=== PATIENT | female | born 1935 ===

== ENCOUNTER 2018-09-11 13:00 | Outpatient (RCR) | payer MEDICARE, OTHER, SELFPAY ==
--- NOTE | 2018-07-24 10:30 | PT.OIE ---
Current Diagnoses Other bursitis of hip, left hip (07/24/18) Provider Visit Care Team Role Provider Type Robin Dyson MD Attending Provider Non-Staff Primary Care Provider Specialty: Orthopedic Surgery Address: [address] [place] [address], [id number] Email: Physical Therapy Initial Evaluation PT-OP-A Visit Information Start: 07/24/18 18:54 Freq: Status: Active Protocol: Document 07/24/18 10:30 DLM (Rec: 07/25/18 19:24 DLM [id number]) Out-Patient Physical Therapy Visit Information Visit Information Visit Type Initial Evaluation Visit Start Time 10:30 Visit Stop Time 11:20 Total Visit Minutes 46 Visit Number 1 Number of MANAGER ROOFING Visits 0 Evaluation Information Evaluation Date 07/24/18 PT-OP-B Current Condition Start: 07/24/18 18:54 Freq: Status: Active Protocol: Document 07/24/18 10:30 DLM (Rec: 07/25/18 19:24 DLM [id number]) Current Condition History of Current Condition Onset Date 1 year ago Current Complaints left hip area pain, posterior and lateral History of Current Condition She reports her pain started about a year ago. She reports pain relief with prior physical therapy. She underwent an MRI since leaving therapy and has been diagnosed with a scoliosis. She had an injection yesturday . Her pain is limiting her ability to walk. She also has pain lying on left hip to sleep. Prior Treatments and Tests physical therapy injection x 2 MRI Treatment Goals Patient/Caregiver Goals be able to walk and hike for exercise Prior Functional Status Baseline Function- ADL's Independent Baseline Function- Mobility Independent Baseline Function- Gait Independent without device community distances Baseline Function- Work/School retired Baseline Function- Recreation/Hobbies likes to hike and walk for exercise goes to strength and balance class 2 x/week Current Functional Impairments (Reported) Functional Limitations- ADL's Independent, pain makes it hard to fall asleep, increased pain limits how long she can stand Functional Limitations- Mobility/Gait Independent gait without device but has limited her distances due to pain, unable to hike due to the pain, has tried a hiking stick Functional Limitations- Recreation/ unable to hike, continues to Hobbies participate in exercise class 2 x/week Personal Factors Other Personal Factors That May Effect 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, DM-I, right LE shorter than left, scoliosis PT-OP-C Subjective Start: 07/24/18 18:54 Freq: Status: Active Protocol: Document 07/24/18 10:30 DLM (Rec: 07/25/18 19:24 DLM [id number]) OP-PT Subjective Patient Comments Patient Comments She has not continued all of her exercises from her prior Physical Therapy with Katerine Patient Questionnaires Lower Extremity Functional Scale LEFS Score 60 LEFS Impairment 20 to 39% Impaired (Score 48- 62) OP-PT Pain Assessment Pain Assessment Grid Paper Pain Assessment Grid Completed Yes Location Left Posterior Lateral Hip Intensity 3 Scale Used Numeric (1 - 10) Description Aching Frequency Constant Variations/Patterns no numbness, no tingling in LE 's Pain Aggravating Factors Changing Position Activity Exercise Standing Walking Stair Climbing Pain Alleviating Factors Cold Heat Medication Inactivity Sitting Home Pain Medication Use Pain Medications Used No: no narcotics Pain Behaviors Pain Behaviors Facial Grimacing Wincing PT-OP-G Mobility & Gait Start: 07/24/18 18:54 Freq: Status: Active Protocol: Document 07/24/18 10:30 DLM (Rec: 07/25/18 19:24 DLM [id number]) OP Mobility Evaluation Bed Mobility Rolling increased pain but able to complete without assistance Supine to and from Sit increased pain but independent , unable to lie flat in supine due to pain and she keeps left knee flexed up Transfers Sit to Stand independent Bed to Chair Transfers independent OP Gait Assessment Gait Gait Assistance Required: Independent Assistive Devices Assistive Device None Gait Deviations General Gait Pattern Antalgic Factors Limiting Gait Function Factors Limiting Gait Function Decreased Strength Pain PT-OP-J Posture/Palpation/Skin Start: 07/24/18 18:54 Freq: Status: Active Protocol: Document 07/24/18 10:30 DLM (Rec: 07/25/18 19:24 DLM [id number]) Posture Evaluation Position Standing Evaluation View Posterior Head/C-Spine Posture Side Bent Left Forward Head T-Spine Posture Flexible Scoliosis on (R) L-Spine Posture Flattened Shifted Left Shoulder Posture (L) Elevated Palpation Assessment Location Two Palpation Location left buttock Palpation Findings Soft Tissue Tightness Tenderness Palpation Details left trochanter area also tender, this was also the area of her injection yesturday One Palpation Location lumbar paraspinals Palpation Findings Soft Tissue Tightness Palpation Details left tighter than right PT-OP-K Range of Motion Start: 07/24/18 18:54 Freq: Status: Active Protocol: Document 07/24/18 10:30 DLM (Rec: 07/25/18 19:24 DLM [id number]) Lumbar Spine Range of Motion Lumbar Spine Active Percentage Testing Position standing Flexion 100 Extension 80 Rotation Left 100 Rotation Right 80 Lateral Flexion Left 50 Lateral Flexion Right 100 ROM Limitations Soft Tissue Tightness Bony Restriction Pain Comments flexion- decreased pain left rotation- increased pain lateral flexion left- increased pain Hip Goniometric Range of Motion Hip Measured in Degrees Right Active Hip ROM WFL Yes Left Active Hip ROM WFL Yes Hip ROM Limitations Comments pain with left hip abduction ROM PT-OP-L Special Tests Start: 07/24/18 18:54 Freq: Status: Active Protocol: Document 07/24/18 10:30 DLM (Rec: 07/25/18 19:24 DLM [id number]) Special Tests Lumbar Spine Special Tests Prone Knee Flexion Test Results negative bilaterally Comments left quad tighter than right Hip Special Tests Straight Leg Raise Test Results negative bilateral, less pain with SLR on left PT-OP-M Strength Start: 07/24/18 18:54 Freq: Status: Active Protocol: Document 07/24/18 10:30 DLM (Rec: 07/25/18 19:24 DLM [id number]) Trunk Strength Trunk Manual Muscle Testing Reason Not Measured Pain Comments pain interferes with her trunk strength Hip Strength Hip Manual Muscle Testing Left Flexion (L2) 4 Good Extension (S1) 5 Normal Abduction 3+ Fair+ Adduction 5 Normal External Rotation 4 Good Internal Rotation 4 Good Reason Not Measured Pain Comments pain with resisted left hip flexion Right Flexion (L2) 5 Normal Extension (S1) 4+ Good+ Abduction 5 Normal Adduction 5 Normal External Rotation 5 Normal Internal Rotation 5 Normal Knee Strength Knee Manual Muscle Testing Left Flexion (S2) 5 Normal Extension (L3) 5 Normal Right Flexion (S2) 5 Normal Extension (L3) 5 Normal Ankle/Foot Strength Ankle and Foot Manual Muscle Testing Left Dorsiflexion (L4) 5 Normal Right Dorsiflexion (L4) 5 Normal PT-OP-Q Treatments Start: 07/24/18 18:54 Freq: Status: Active Protocol: Document 07/24/18 10:30 DLM (Rec: 07/25/18 19:24 [facility] [id number]) Self-Care/Home Management Treatment Education Other Education initiated review of her current HEP, pt to make a list of what exercises she currently performs and bring to next visit PT-OP-T Assessment and Plan Start: 07/24/18 18:54 Freq: Status: Active Protocol: Document 07/24/18 10:30 DLM (Rec: 07/25/18 19:24 [facility] [id number]) Physical Therapy Assessment Rehab Potential Rehabilitation Potential Good Evaluation Complexity Number of Personal Factors/Comorbidities 3 or More Number of Body Systems Impaired 4 or More Clinical Presentation at Evaluation Evolving Impairments Impairments Activity Tolerance Functional Activities Functional Mobility Gait Pain Posture ROM Soft Tissue Mobility Strength Other Concerns Age Related Concerns 82 years old Goals Three Impairment pain interferes with her sleep Short Term Goal (STG) she will be able to lie flat in supine STG Duration 4 weeks Retirement Goal (LTG) Her pain will no longer make it hard for her to get to sleep LTG Duration 8 weeks Two Impairment LE weakness Short Term Goal (STG) Increase left hip abduction strength to at least 4/5 STG Duration 4 weeks Retirement Goal (LTG) Increase her LE strength to at least 4+/5 LTG Duration 8 weeks One Impairment pain 3/10 Short Term Goal (STG) She will be able to roll over in bed without increased left hip pain STG Duration 4 weeks Retirement Goal (LTG) She will be able to walk a mile without increased left hip pain, with/without assistive device LTG Duration 8 weeks Assessment Summary Assessment She presents with left hip pain of a complex nature. She has clinical signs of trochanteric bursitis. 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 She responded to physical therapy well in the past. She is very active at baseline and is concerned that her pain is now limiting her activities. She appears motivated to participate in physical therapy to decrease her pain. Physical Therapy Plan Frequency and Duration Frequency of Treatment 2x/Week Duration of Treatment 8 weeks Plan of Care Start Date 07/24/18 Plan of Care End Date 09/30/18 Therapeutic Interventions Therapeutic Interventions Aquatic Therapy Home Exercise Program Manual Therapy Patient/Caregiver Education Self-Care/Home Management Soft Tissue Mobilization Taping Therapeutic Activities Therapeutic Exercises Modalities Cold Pack/Ice Massage Electric Stimulation Hot Packs Ultrasound Next Visit Focus/Plan Next Note Type Treatment Note Next Visit Plan review her current HEP, begin strengthening as tolerated, manual therapy
--- NOTE | 2018-07-24 10:30 | PT.OPPOC ---
Current Diagnoses Other bursitis of hip, left hip (07/24/18) Provider Visit Care Team Role Provider Type Robin Dyson MD Attending Provider Non-Staff Primary Care Provider Specialty: Orthopedic Surgery Address: [address] [place] [address], [id number] Email: Plan Of Care PT-OP-T Assessment and Plan Start: 07/24/18 18:54 Freq: Status: Active Protocol: Document 07/24/18 10:30 DLM (Rec: 07/25/18 19:24 DLM [id number]) Physical Therapy Assessment Rehab Potential Rehabilitation Potential Good Evaluation Complexity Number of Personal Factors/Comorbidities 3 or More Number of Body Systems Impaired 4 or More Clinical Presentation at Evaluation Evolving Impairments Impairments Activity Tolerance Functional Activities Functional Mobility Gait Pain Posture ROM Soft Tissue Mobility Strength Other Concerns Age Related Concerns 82 years old Goals Three Impairment pain interferes with her sleep Short Term Goal (STG) she will be able to lie flat in supine STG Duration 4 weeks Fire Controlman Goal (LTG) Her pain will no longer make it hard for her to get to sleep LTG Duration 8 weeks Two Impairment LE weakness Short Term Goal (STG) Increase left hip abduction strength to at least 4/5 STG Duration 4 weeks Fire Controlman Goal (LTG) Increase her LE strength to at least 4+/5 LTG Duration 8 weeks One Impairment pain 3/10 Short Term Goal (STG) She will be able to roll over in bed without increased left hip pain STG Duration 4 weeks Penitentiary Goal (LTG) She will be able to walk a mile without increased left hip pain, with/without assistive device LTG Duration 8 weeks Assessment Summary Assessment She presents with left hip pain of a complex nature. She has clinical signs of trochanteric bursitis. 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 She responded to physical therapy well in the past. She is very active at baseline and is concerned that her pain is now limiting her activities. She appears motivated to participate in physical therapy to decrease her pain. Physical Therapy Plan Frequency and Duration Frequency of Treatment 2x/Week Duration of Treatment 8 weeks Plan of Care Start Date 07/24/18 Plan of Care End Date 09/30/18 Therapeutic Interventions Therapeutic Interventions Aquatic Therapy Home Exercise Program Manual Therapy Patient/Caregiver Education Self-Care/Home Management Soft Tissue Mobilization Taping Therapeutic Activities Therapeutic Exercises Modalities Cold Pack/Ice Massage Electric Stimulation Hot Packs Ultrasound Next Visit Focus/Plan Next Note Type Treatment Note Next Visit Plan review her current HEP, begin strengthening as tolerated, manual therapy Plan of Care Dates Plan of Care Start Date 07/24/18 Plan of Care End Date 09/30/18 Please Sign and Return: I have reviewed this Plan of Care and certify that the skilled therapy services above are required to meet the patient?s needs. Physician Signature Date Printed Name and Credentials Clinical Instructor Signature Printed Name and Credentials
--- NOTE | 2018-07-31 11:15 | PT.OTN ---
Current Diagnoses Other bursitis of hip, left hip (07/31/18) Physical Therapy Treatment Note PT-OP-A Visit Information Start: 07/24/18 18:54 Freq: Status: Active Protocol: Document 07/31/18 11:15 DLM (Rec: 07/31/18 14:34 DLM [id number]) Out-Patient Physical Therapy Visit Information Visit Information Visit Type Treatment Note Visit Start Time 11:17 Visit Stop Time 11:59 Total Visit Minutes 42 Visit Number 3/ Number of LABORATORY CLERK Visits 0 Evaluation Information Evaluation Date 07/24/18 PT-OP-B Current Condition Start: 07/24/18 18:54 Freq: Status: Active Protocol: Document 07/24/18 10:30 DLM (Rec: 07/25/18 19:24 DLM [id number]) Current Condition History of Current Condition Onset Date 1 year ago Current Complaints left hip area pain, posterior and lateral History of Current Condition She reports her pain started about a year ago. She reports pain relief with prior physical therapy. She underwent an MRI since leaving therapy and has been diagnosed with a scoliosis. She had an injection yesturday . Her pain is limiting her ability to walk. She also has pain lying on left hip to sleep. Prior Treatments and Tests physical therapy injection x 2 MRI Treatment Goals Patient/Caregiver Goals be able to walk and hike for exercise Prior Functional Status Baseline Function- ADL's Independent Baseline Function- Mobility Independent Baseline Function- Gait Independent without device community distances Baseline Function- Work/School retired Baseline Function- Recreation/Hobbies likes to hike and walk for exercise goes to strength and balance class 2 x/week Current Functional Impairments (Reported) Functional Limitations- ADL's Independent, pain makes it hard to fall asleep, increased pain limits how long she can stand Functional Limitations- Mobility/Gait Independent gait without device but has limited her distances due to pain, unable to hike due to the pain, has tried a hiking stick Functional Limitations- Recreation/ unable to hike, continues to Hobbies participate in exercise class 2 x/week Personal Factors Other Personal Factors That May Effect 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 No increased soreness after last visit nor with exercises at home. Patient Reported Progress Improving OP-PT Pain Assessment Location Left Posterior Lateral Hip Intensity 1 Scale Used Numeric (1 - 10) Description Tightness Frequency Intermittent PT-OP-G Mobility & Gait Start: 07/24/18 18:54 Freq: Status: Active Protocol: Document 07/24/18 10:30 DLM (Rec: 07/25/18 19:24 DLM [id number]) OP Mobility Evaluation Bed Mobility Rolling increased pain but able to complete without assistance Supine to and from Sit increased pain but independent , unable to lie flat in supine due to pain and she keeps left knee flexed up Transfers Sit to Stand independent Bed to Chair Transfers independent OP Gait Assessment Gait Gait Assistance Required: Independent Assistive Devices Assistive Device None Gait Deviations General Gait Pattern Antalgic Factors Limiting Gait Function Factors Limiting Gait Function Decreased Strength Pain PT-OP-J Posture/Palpation/Skin Start: 07/24/18 18:54 Freq: Status: Active Protocol: Document 07/24/18 10:30 DLM (Rec: 07/25/18 19:24 DL [id number]) Posture Evaluation Position Standing Evaluation View Posterior Head/C-Spine Posture Side Bent Left Forward Head T-Spine Posture Flexible Scoliosis on (R) L-Spine Posture Flattened Shifted Left Shoulder Posture (L) Elevated Palpation Assessment Location Two Palpation Location left buttock Palpation Findings Soft Tissue Tightness Tenderness Palpation Details left trochanter area also tender, this was also the area of her injection yesturday One Palpation Location lumbar paraspinals Palpation Findings Soft Tissue Tightness Palpation Details left tighter than right PT-OP-K Range of Motion Start: 07/24/18 18:54 Freq: Status: Active Protocol: Document 07/24/18 10:30 DLM (Rec: 07/25/18 19:24 DLM [id number]) Lumbar Spine Range of Motion Lumbar Spine Active Percentage Testing Position standing Flexion 100 Extension 80 Rotation Left 100 Rotation Right 80 Lateral Flexion Left 50 Lateral Flexion Right 100 ROM Limitations Soft Tissue Tightness Bony Restriction Pain Comments flexion- decreased pain left rotation- increased pain lateral flexion left- increased pain Hip Goniometric Range of Motion Hip Measured in Degrees Right Active Hip ROM WFL Yes Left Active Hip ROM WFL Yes Hip ROM Limitations Comments pain with left hip abduction ROM PT-OP-L Special Tests Start: 07/24/18 18:54 Freq: Status: Active Protocol: Document 07/24/18 10:30 DLM (Rec: 07/25/18 19:24 DLM [id number]) Special Tests Lumbar Spine Special Tests Prone Knee Flexion Test Results negative bilaterally Comments left quad tighter than right Hip Special Tests Straight Leg Raise Test Results negative bilateral, less pain with SLR on left PT-OP-M Strength Start: 07/24/18 18:54 Freq: Status: Active Protocol: Document 07/24/18 10:30 DLM (Rec: 07/25/18 19:24 DL [id number]) Trunk Strength Trunk Manual Muscle Testing Reason Not Measured Pain Comments pain interferes with her trunk strength Hip Strength Hip Manual Muscle Testing Left Flexion (L2) 4 Good Extension (S1) 5 Normal Abduction 3+ Fair+ Adduction 5 Normal External Rotation 4 Good Internal Rotation 4 Good Reason Not Measured Pain Comments pain with resisted left hip flexion Right Flexion (L2) 5 Normal Extension (S1) 4+ Good+ Abduction 5 Normal Adduction 5 Normal External Rotation 5 Normal Internal Rotation 5 Normal Knee Strength Knee Manual Muscle Testing Left Flexion (S2) 5 Normal Extension (L3) 5 Normal Right Flexion (S2) 5 Normal Extension (L3) 5 Normal Ankle/Foot Strength Ankle and Foot Manual Muscle Testing Left Dorsiflexion (L4) 5 Normal Right Dorsiflexion (L4) 5 Normal PT-OP-Q Treatments Start: 07/24/18 18:54 Freq: Status: Active Protocol: Document 07/31/18 11:15 DLM (Rec: 07/31/18 14:34 DLM [id number]) Therapeutic Exercises Supine Exercises 5 Supine Exercise Name hip flexor stretch off edge of bed Side bilateral Reps/Minutes 30 sec hold 3 Supine Exercise Name single knee to chest stretch Resistance 3 reps each side Reps/Minutes hold 60 seconds 2 Supine Exercise Name bilateral hip abduction with therabanc Resistance level 1 theraband Reps/Minutes 2 x 10 reps Comments Hooklying 1 Supine Exercise Name bridges Reps/Minutes 2 x 10 reps Comments no pain Sidelying Exercises 1 Sidelying Exercise Name clam shells Reps/Minutes 2 x 10 reps Standing Exercises 1 Standing Exercise Name marching with core stabalization Side bilateral Reps/Minutes x 10 reps Comments mirror and cues to avoid post pelvic rotation when lifting right foot up Other Exercises 2 Other Exercise Name hip hinge rock back stretch Reps/Minutes x 10 reps Comments c/o tightness on left compared to right 1 Other Exercise Name cat cow Reps/Minutes 10 reps Comments Quadruped with towel under left hand Self-Care/Home Management Treatment Education Other Education answered her questions about HEP PT-OP-R Modalities Start: 07/24/18 18:54 Freq: Status: Active Protocol: Document 07/31/18 11:15 DLM (Rec: 07/31/18 14:34 [facility] [id number]) Ultrasound Therapy Treatment Left Hip Treatment Duration (minutes) 8 Patient Position Sidelying Coupling Medium Ultrasound Gel Applicator Size (cm2) 10 Mode Setting Continuous Duty Cycle 100% Intensity Setting (w/cm2) 1.2 Comments posterior/lateral aspects PT-OP-T Assessment and Plan Start: 07/24/18 18:54 Freq: Status: Active Protocol: Document 07/31/18 11:15 DLM (Rec: 07/31/18 14:34 [facility] [id number]) Physical Therapy Assessment Impairments Impairments Activity Tolerance Functional Activities Functional Mobility Gait Pain Posture ROM Soft Tissue Mobility Strength Goals Three Impairment pain interferes with her sleep Short Term Goal (STG) she will be able to lie flat in supine STG Duration 4 weeks Nursing Home Goal (LTG) Her pain will no longer make it hard for her to get to sleep LTG Duration 8 weeks Two Impairment LE weakness Short Term Goal (STG) Increase left hip abduction strength to at least 4/5 STG Duration 4 weeks Ward Secretary Goal (LTG) Increase her LE strength to at least 4+/5 LTG Duration 8 weeks One Impairment pain 3/10 Short Term Goal (STG) She will be able to roll over in bed without increased left hip pain STG Duration 4 weeks Ward Secretary Goal (LTG) She will be able to walk a mile without increased left hip pain, with/without assistive device LTG Duration 8 weeks Progress Towards Goals Progress Towards Goals Progressing Toward Goals Assessment Summary Assessment She continues to have decreased pain in her left hip . She tolerated exercises well this visit with reports of tightness on left. Noted pelvic/hip instability with right standing march motion where she rotates. Recommend continuing to progress strengthening with core stabalization. She continues to have pain with rolling in bed. Physical Therapy Plan Frequency and Duration Frequency of Treatment 2x/Week Duration of Treatment 8 weeks Plan of Care Start Date 07/24/18 Plan of Care End Date 09/30/18 Therapeutic Interventions Therapeutic Interventions Aquatic Therapy Home Exercise Program Manual Therapy Patient/Caregiver Education Self-Care/Home Management Soft Tissue Mobilization Taping Therapeutic Activities Therapeutic Exercises Modalities Cold Pack/Ice Massage Electric Stimulation Hot Packs Ultrasound Next Visit Focus/Plan Next Note Type Treatment Note Next Visit Plan ITB stretching and STM , core stabalization
--- NOTE | 2018-07-31 11:47 | PT.OTN ---
Current Diagnoses Other bursitis of hip, left hip (07/31/18) Physical Therapy Treatment Note PT-OP-A Visit Information Start: 07/24/18 18:54 Freq: Status: Active Protocol: Document 07/26/18 14:30 [facility] (Rec: 07/31/18 11:46 [facility] [email or web address]) Out-Patient Physical Therapy Visit Information Visit Information Visit Type Treatment Note Visit Start Time 14:30 Visit Stop Time 15:15 Total Visit Minutes 45 Visit Number 2 Number of DIRECTOR OF PHYSICIAN PRACTICES Visits 0 Evaluation Information Evaluation Date 07/24/18 PT-OP-B Current Condition Start: 07/24/18 18:54 Freq: Status: Active Protocol: Document 07/24/18 10:30 DLM (Rec: 07/25/18 19:24 DLM [id number]) Current Condition History of Current Condition Onset Date 1 year ago Current Complaints left hip area pain, posterior and lateral History of Current Condition She reports her pain started about a year ago. She reports pain relief with prior physical therapy. She underwent an MRI since leaving therapy and has been diagnosed with a scoliosis. She had an injection yesturday . Her pain is limiting her ability to walk. She also has pain lying on left hip to sleep. Prior Treatments and Tests physical therapy injection x 2 MRI Treatment Goals Patient/Caregiver Goals be able to walk and hike for exercise Prior Functional Status Baseline Function- ADL's Independent Baseline Function- Mobility Independent Baseline Function- Gait Independent without device community distances Baseline Function- Work/School retired Baseline Function- Recreation/Hobbies likes to hike and walk for exercise goes to strength and balance class 2 x/week Current Functional Impairments (Reported) Functional Limitations- ADL's Independent, pain makes it hard to fall asleep, increased pain limits how long she can stand Functional Limitations- Mobility/Gait Independent gait without device but has limited her distances due to pain, unable to hike due to the pain, has tried a hiking stick Functional Limitations- Recreation/ unable to hike, continues to Hobbies participate in exercise class 2 x/week Personal Factors Other Personal Factors That May Effect 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, DM-I, right LE shorter than left, scoliosis PT-OP-C Subjective Start: 07/24/18 18:54 Freq: Status: Active Protocol: Document 07/26/18 14:30 [facility] (Rec: 07/31/18 11:46 [facility] [email or web address]) OP-PT Subjective Patient Comments Patient Comments Eryn reports she is feeling pretty good in her left hip following her cortisone injection PT-OP-G Mobility & Gait Start: 07/24/18 18:54 Freq: Status: Active Protocol: Document 07/24/18 10:30 DLM (Rec: 07/25/18 19:24 DLM [id number]) OP Mobility Evaluation Bed Mobility Rolling increased pain but able to complete without assistance Supine to and from Sit increased pain but independent , unable to lie flat in supine due to pain and she keeps left knee flexed up Transfers Sit to Stand independent Bed to Chair Transfers independent OP Gait Assessment Gait Gait Assistance Required: Independent Assistive Devices Assistive Device None Gait Deviations General Gait Pattern Antalgic Factors Limiting Gait Function Factors Limiting Gait Function Decreased Strength Pain PT-OP-J Posture/Palpation/Skin Start: 07/24/18 18:54 Freq: Status: Active Protocol: Document 07/24/18 10:30 DLM (Rec: 07/25/18 19:24 DL [id number]) Posture Evaluation Position Standing Evaluation View Posterior Head/C-Spine Posture Side Bent Left Forward Head T-Spine Posture Flexible Scoliosis on (R) L-Spine Posture Flattened Shifted Left Shoulder Posture (L) Elevated Palpation Assessment Location Two Palpation Location left buttock Palpation Findings Soft Tissue Tightness Tenderness Palpation Details left trochanter area also tender, this was also the area of her injection yesturday One Palpation Location lumbar paraspinals Palpation Findings Soft Tissue Tightness Palpation Details left tighter than right PT-OP-K Range of Motion Start: 07/24/18 18:54 Freq: Status: Active Protocol: Document 07/24/18 10:30 DLM (Rec: 07/25/18 19:24 DLM [id number]) Lumbar Spine Range of Motion Lumbar Spine Active Percentage Testing Position standing Flexion 100 Extension 80 Rotation Left 100 Rotation Right 80 Lateral Flexion Left 50 Lateral Flexion Right 100 ROM Limitations Soft Tissue Tightness Bony Restriction Pain Comments flexion- decreased pain left rotation- increased pain lateral flexion left- increased pain Hip Goniometric Range of Motion Hip Measured in Degrees Right Active Hip ROM WFL Yes Left Active Hip ROM WFL Yes Hip ROM Limitations Comments pain with left hip abduction ROM PT-OP-L Special Tests Start: 07/24/18 18:54 Freq: Status: Active Protocol: Document 07/24/18 10:30 DLM (Rec: 07/25/18 19:24 DL [id number]) Special Tests Lumbar Spine Special Tests Prone Knee Flexion Test Results negative bilaterally Comments left quad tighter than right Hip Special Tests Straight Leg Raise Test Results negative bilateral, less pain with SLR on left PT-OP-M Strength Start: 07/24/18 18:54 Freq: Status: Active Protocol: Document 07/24/18 10:30 DLM (Rec: 07/25/18 19:24 DL [id number]) Trunk Strength Trunk Manual Muscle Testing Reason Not Measured Pain Comments pain interferes with her trunk strength Hip Strength Hip Manual Muscle Testing Left Flexion (L2) 4 Good Extension (S1) 5 Normal Abduction 3+ Fair+ Adduction 5 Normal External Rotation 4 Good Internal Rotation 4 Good Reason Not Measured Pain Comments pain with resisted left hip flexion Right Flexion (L2) 5 Normal Extension (S1) 4+ Good+ Abduction 5 Normal Adduction 5 Normal External Rotation 5 Normal Internal Rotation 5 Normal Knee Strength Knee Manual Muscle Testing Left Flexion (S2) 5 Normal Extension (L3) 5 Normal Right Flexion (S2) 5 Normal Extension (L3) 5 Normal Ankle/Foot Strength Ankle and Foot Manual Muscle Testing Left Dorsiflexion (L4) 5 Normal Right Dorsiflexion (L4) 5 Normal PT-OP-Q Treatments Start: 07/24/18 18:54 Freq: Status: Active Protocol: Document 07/26/18 14:30 [facility] (Rec: 07/31/18 11:46 [facility] [email or web address]) Cardio Equipment Recumbent Elliptical ([employer]) Duration (Minutes) 5 Other lev 3 Therapeutic Exercises Supine Exercises 4 Supine Exercise Name ITB stretch with manual assistance Reps/Minutes hold 1-2 minutes 3 Supine Exercise Name single knee to chest stretch Reps/Minutes hold 60 seconds 2 Supine Exercise Name bilateral hip abduction with therabanc Resistance level 1 theraband Reps/Minutes 2 x 10 1 Supine Exercise Name bridges Reps/Minutes 2 x 10 reps Sidelying Exercises 1 Sidelying Exercise Name clam shells Reps/Minutes 2 x 10 Other Exercises 1 Other Exercise Name cat cow Reps/Minutes 10 reps PT-OP-R Modalities Start: 07/24/18 18:54 Freq: Status: Active Protocol: Document 07/26/18 14:30 [facility] (Rec: 07/31/18 11:47 [facility] [email or web address]) Ultrasound Therapy Treatment Left Hip Patient Position Sidelying Coupling Medium Ultrasound Gel Applicator Size (cm2) 5 Mode Setting Continuous Intensity Setting (w/cm2) 1.5 PT-OP-T Assessment and Plan Start: 07/24/18 18:54 Freq: Status: Active Protocol: Document 07/26/18 14:30 [facility] (Rec: 07/31/18 11:46 [facility] [email or web address]) Physical Therapy Assessment Assessment Summary Assessment Eryn tolerated all exercises well today without increased complaints of pain. She is very weak in her gluteus medius on the left and clam shells were a challenge for her. Physical Therapy Plan Frequency and Duration Frequency of Treatment 2x/Week Duration of Treatment 8 weeks Plan of Care Start Date 07/24/18 Plan of Care End Date 09/30/18 Therapeutic Interventions Therapeutic Interventions Aquatic Therapy Home Exercise Program Manual Therapy Patient/Caregiver Education Self-Care/Home Management Soft Tissue Mobilization Taping Therapeutic Activities Therapeutic Exercises Modalities Cold Pack/Ice Massage Electric Stimulation Hot Packs Ultrasound Next Visit Focus/Plan Next Note Type Treatment Note Next Visit Plan continue with hip strengthening, stretches for the low back and hip, manual release of the ITB may also be helpful
--- NOTE | 2018-08-03 10:30 | PT.OTN ---
Current Diagnoses Other bursitis of hip, left hip (08/03/18) Physical Therapy Treatment Note PT-OP-A Visit Information Start: 07/24/18 18:54 Freq: Status: Active Protocol: Document 08/03/18 10:30 DLM (Rec: 08/03/18 13:26 DLM [id number]) Out-Patient Physical Therapy Visit Information Visit Information Visit Type Treatment Note Visit Start Time 10:30 Visit Stop Time 11:20 Total Visit Minutes 45 Visit Number 4/10 Number of SPORT PSYCHOLOGIST Visits 0 Evaluation Information Evaluation Date 07/24/18 PT-OP-B Current Condition Start: 07/24/18 18:54 Freq: Status: Active Protocol: Document 07/24/18 10:30 DLM (Rec: 07/25/18 19:24 DLM [id number]) Current Condition History of Current Condition Onset Date 1 year ago Current Complaints left hip area pain, posterior and lateral History of Current Condition She reports her pain started about a year ago. She reports pain relief with prior physical therapy. She underwent an MRI since leaving therapy and has been diagnosed with a scoliosis. She had an injection yesturday . Her pain is limiting her ability to walk. She also has pain lying on left hip to sleep. Prior Treatments and Tests physical therapy injection x 2 MRI Treatment Goals Patient/Caregiver Goals be able to walk and hike for exercise Prior Functional Status Baseline Function- ADL's Independent Baseline Function- Mobility Independent Baseline Function- Gait Independent without device community distances Baseline Function- Work/School retired Baseline Function- Recreation/Hobbies likes to hike and walk for exercise goes to strength and balance class 2 x/week Current Functional Impairments (Reported) Functional Limitations- ADL's Independent, pain makes it hard to fall asleep, increased pain limits how long she can stand Functional Limitations- Mobility/Gait Independent gait without device but has limited her distances due to pain, unable to hike due to the pain, has tried a hiking stick Functional Limitations- Recreation/ unable to hike, continues to Hobbies participate in exercise class 2 x/week Personal Factors Other Personal Factors That May Effect 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 The left hip pain is making it hard for her to get to sleep at night. She is not sure if the [place] is helping Patient Reported Progress Improving OP-PT Pain Assessment Location Left Posterior Lateral Hip Intensity 1 Scale Used Numeric (1 - 10) Description Aching Tightness Frequency Intermittent Pain Behaviors Pain Behaviors Facial Grimacing Wincing PT-OP-G Mobility & Gait Start: 07/24/18 18:54 Freq: Status: Active Protocol: Document 07/24/18 10:30 DLM (Rec: 07/25/18 19:24 DLM [id number]) OP Mobility Evaluation Bed Mobility Rolling increased pain but able to complete without assistance Supine to and from Sit increased pain but independent , unable to lie flat in supine due to pain and she keeps left knee flexed up Transfers Sit to Stand independent Bed to Chair Transfers independent OP Gait Assessment Gait Gait Assistance Required: Independent Assistive Devices Assistive Device None Gait Deviations General Gait Pattern Antalgic Factors Limiting Gait Function Factors Limiting Gait Function Decreased Strength Pain PT-OP-J Posture/Palpation/Skin Start: 07/24/18 18:54 Freq: Status: Active Protocol: Document 07/24/18 10:30 DLM (Rec: 07/25/18 19:24 DL [id number]) Posture Evaluation Position Standing Evaluation View Posterior Head/C-Spine Posture Side Bent Left Forward Head T-Spine Posture Flexible Scoliosis on (R) L-Spine Posture Flattened Shifted Left Shoulder Posture (L) Elevated Palpation Assessment Location Two Palpation Location left buttock Palpation Findings Soft Tissue Tightness Tenderness Palpation Details left trochanter area also tender, this was also the area of her injection yesturday One Palpation Location lumbar paraspinals Palpation Findings Soft Tissue Tightness Palpation Details left tighter than right PT-OP-K Range of Motion Start: 07/24/18 18:54 Freq: Status: Active Protocol: Document 07/24/18 10:30 DLM (Rec: 07/25/18 19:24 DLM [id number]) Lumbar Spine Range of Motion Lumbar Spine Active Percentage Testing Position standing Flexion 100 Extension 80 Rotation Left 100 Rotation Right 80 Lateral Flexion Left 50 Lateral Flexion Right 100 ROM Limitations Soft Tissue Tightness Bony Restriction Pain Comments flexion- decreased pain left rotation- increased pain lateral flexion left- increased pain Hip Goniometric Range of Motion Hip Measured in Degrees Right Active Hip ROM WFL Yes Left Active Hip ROM WFL Yes Hip ROM Limitations Comments pain with left hip abduction ROM PT-OP-L Special Tests Start: 07/24/18 18:54 Freq: Status: Active Protocol: Document 07/24/18 10:30 DLM (Rec: 07/25/18 19:24 DLM [id number]) Special Tests Lumbar Spine Special Tests Prone Knee Flexion Test Results negative bilaterally Comments left quad tighter than right Hip Special Tests Straight Leg Raise Test Results negative bilateral, less pain with SLR on left PT-OP-M Strength Start: 07/24/18 18:54 Freq: Status: Active Protocol: Document 07/24/18 10:30 DLM (Rec: 07/25/18 19:24 DLM [id number]) Trunk Strength Trunk Manual Muscle Testing Reason Not Measured Pain Comments pain interferes with her trunk strength Hip Strength Hip Manual Muscle Testing Left Flexion (L2) 4 Good Extension (S1) 5 Normal Abduction 3+ Fair+ Adduction 5 Normal External Rotation 4 Good Internal Rotation 4 Good Reason Not Measured Pain Comments pain with resisted left hip flexion Right Flexion (L2) 5 Normal Extension (S1) 4+ Good+ Abduction 5 Normal Adduction 5 Normal External Rotation 5 Normal Internal Rotation 5 Normal Knee Strength Knee Manual Muscle Testing Left Flexion (S2) 5 Normal Extension (L3) 5 Normal Right Flexion (S2) 5 Normal Extension (L3) 5 Normal Ankle/Foot Strength Ankle and Foot Manual Muscle Testing Left Dorsiflexion (L4) 5 Normal Right Dorsiflexion (L4) 5 Normal PT-OP-Q Treatments Start: 07/24/18 18:54 Freq: Status: Active Protocol: Document 08/03/18 10:30 DLM (Rec: 08/03/18 13:26 DLM [id number]) Cardio Equipment Recumbent Elliptical ([employer]) Duration (Minutes) 5 Resistance Level 3 Seat Position 5 Therapeutic Exercises Supine Exercises 6 Supine Exercise Name hooklying hip adduction Side bilateral Resistance pillow Reps/Minutes 10 reps 5 Supine Exercise Name hip flexor stretch off edge of bed Comments had to stop due to increased pain 3 Supine Exercise Name single knee to chest stretch Resistance 3 reps each side Reps/Minutes hold 60 seconds 2 Supine Exercise Name bilateral hip abduction with therabanc Resistance Level 2 exercise band Reps/Minutes 2 x 10 reps Comments Hooklying 1 Supine Exercise Name bridges Comments had to stop due to radiating pain in left thigh Standing Exercises 2 Standing Exercise Name postural correction Equipment Used mirror Other Exercises 2 Other Exercise Name hip hinge rock back stretch Reps/Minutes x 10 reps Comments c/o tightness on left compared to right 1 Other Exercise Name cat cow Reps/Minutes 10 reps Comments Quadruped with towel under left hand Manual Therapy Treatment Soft Tissue Mobilization 2 Body Location left buttock Mobilization Type Myofascial Release Strumming Sustained Pressure Intensity/Depth Moderate Body Position Sidelying 1 Body Location left ITB Mobilization Type Cross-Friction Myofascial Release Strumming Intensity/Depth Moderate Body Position Sidelying Self-Care/Home Management Treatment Education Patient Education Home Exercise Program Pain Management Other Education she is using ice and heat at home PT-OP-R Modalities Start: 07/24/18 18:54 Freq: Status: Active Protocol: Document 08/03/18 10:30 DLM (Rec: 08/03/18 13:26 DLM [id number]) Ultrasound Therapy Treatment Left Hip Comments held today since pt is unsure if it is helping, assess next visit PT-OP-T Assessment and Plan Start: 07/24/18 18:54 Freq: Status: Active Protocol: Document 08/03/18 10:30 DLM (Rec: 08/03/18 13:26 DLM [id number]) Physical Therapy Assessment Impairments Impairments Activity Tolerance Functional Activities Functional Mobility Gait Pain Posture ROM Soft Tissue Mobility Strength Goals Three Impairment pain interferes with her sleep Short Term Goal (STG) she will be able to lie flat in supine STG Duration 4 weeks Mcc Goal (LTG) Her pain will no longer make it hard for her to get to sleep LTG Duration 8 weeks Two Impairment LE weakness Short Term Goal (STG) Increase left hip abduction strength to at least 4/5 STG Duration 4 weeks Support Services Specialist Goal (LTG) Increase her LE strength to at least 4+/5 LTG Duration 8 weeks One Impairment pain 3/10 Short Term Goal (STG) She will be able to roll over in bed without increased left hip pain STG Duration 4 weeks Support Services Specialist Goal (LTG) She will be able to walk a mile without increased left hip pain, with/without assistive device LTG Duration 8 weeks Progress Towards Goals Progress Towards Goals Slow Progress - Other Progress Comments more pain with her exercises today Assessment Summary Assessment She reports over-all pain relief but still having pain that makes it hard to get to sleep. She had increased pain with her exercises today including pain shooting down left LE. Modified exercises to manage her pain. Pt reports that she is not sure the [place] helps so it was held this visit. Will assess next visit. Unclear why she had more pain this visit. Noted left trochanteric bursa also more tender to touch today. Physical Therapy Plan Frequency and Duration Frequency of Treatment 2x/Week Duration of Treatment 8 weeks Plan of Care Start Date 07/24/18 Plan of Care End Date 09/30/18 Therapeutic Interventions Therapeutic Interventions Aquatic Therapy Home Exercise Program Manual Therapy Patient/Caregiver Education Self-Care/Home Management Soft Tissue Mobilization Taping Therapeutic Activities Therapeutic Exercises Modalities Cold Pack/Ice Massage Electric Stimulation Hot Packs Ultrasound Next Visit Focus/Plan Next Note Type Treatment Note Next Visit Plan modify exercises to manage her increase in pain
--- NOTE | 2018-08-07 14:02 | PT.OTN ---
Current Diagnoses Other bursitis of hip, left hip (08/07/18) Physical Therapy Treatment Note PT-OP-A Visit Information Start: 07/24/18 18:54 Freq: Status: Active Protocol: Document 08/07/18 10:30 GGD (Rec: 08/07/18 14:02 GGD [email or web address]) Out-Patient Physical Therapy Visit Information Visit Information Visit Type Treatment Note Visit Start Time 10:31 Visit Stop Time 11:13 Total Visit Minutes 42 Visit Number 5/10 Number of CAMERA CONTROL OPERATOR Visits 1 Evaluation Information Evaluation Date 07/24/18 PT-OP-B Current Condition Start: 07/24/18 18:54 Freq: Status: Active Protocol: Document 07/24/18 10:30 DLM (Rec: 07/25/18 19:24 DLM [id number]) Current Condition History of Current Condition Onset Date 1 year ago Current Complaints left hip area pain, posterior and lateral History of Current Condition She reports her pain started about a year ago. She reports pain relief with prior physical therapy. She underwent an MRI since leaving therapy and has been diagnosed with a scoliosis. She had an injection yesturday . Her pain is limiting her ability to walk. She also has pain lying on left hip to sleep. Prior Treatments and Tests physical therapy injection x 2 MRI Treatment Goals Patient/Caregiver Goals be able to walk and hike for exercise Prior Functional Status Baseline Function- ADL's Independent Baseline Function- Mobility Independent Baseline Function- Gait Independent without device community distances Baseline Function- Work/School retired Baseline Function- Recreation/Hobbies likes to hike and walk for exercise goes to strength and balance class 2 x/week Current Functional Impairments (Reported) Functional Limitations- ADL's Independent, pain makes it hard to fall asleep, increased pain limits how long she can stand Functional Limitations- Mobility/Gait Independent gait without device but has limited her distances due to pain, unable to hike due to the pain, has tried a hiking stick Functional Limitations- Recreation/ unable to hike, continues to Hobbies participate in exercise class 2 x/week Personal Factors Other Personal Factors That May Effect 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 She doesn't feel US was helpful. PT-OP-G Mobility & Gait Start: 07/24/18 18:54 Freq: Status: Active Protocol: Document 07/24/18 10:30 DLM (Rec: 07/25/18 19:24 DLM [id number]) OP Mobility Evaluation Bed Mobility Rolling increased pain but able to complete without assistance Supine to and from Sit increased pain but independent , unable to lie flat in supine due to pain and she keeps left knee flexed up Transfers Sit to Stand independent Bed to Chair Transfers independent OP Gait Assessment Gait Gait Assistance Required: Independent Assistive Devices Assistive Device None Gait Deviations General Gait Pattern Antalgic Factors Limiting Gait Function Factors Limiting Gait Function Decreased Strength Pain PT-OP-J Posture/Palpation/Skin Start: 07/24/18 18:54 Freq: Status: Active Protocol: Document 07/24/18 10:30 DLM (Rec: 07/25/18 19:24 DLM [id number]) Posture Evaluation Position Standing Evaluation View Posterior Head/C-Spine Posture Side Bent Left Forward Head T-Spine Posture Flexible Scoliosis on (R) L-Spine Posture Flattened Shifted Left Shoulder Posture (L) Elevated Palpation Assessment Location Two Palpation Location left buttock Palpation Findings Soft Tissue Tightness Tenderness Palpation Details left trochanter area also tender, this was also the area of her injection yesturday One Palpation Location lumbar paraspinals Palpation Findings Soft Tissue Tightness Palpation Details left tighter than right PT-OP-K Range of Motion Start: 07/24/18 18:54 Freq: Status: Active Protocol: Document 07/24/18 10:30 DLM (Rec: 07/25/18 19:24 DLM [id number]) Lumbar Spine Range of Motion Lumbar Spine Active Percentage Testing Position standing Flexion 100 Extension 80 Rotation Left 100 Rotation Right 80 Lateral Flexion Left 50 Lateral Flexion Right 100 ROM Limitations Soft Tissue Tightness Bony Restriction Pain Comments flexion- decreased pain left rotation- increased pain lateral flexion left- increased pain Hip Goniometric Range of Motion Hip Measured in Degrees Right Active Hip ROM WFL Yes Left Active Hip ROM WFL Yes Hip ROM Limitations Comments pain with left hip abduction ROM PT-OP-L Special Tests Start: 07/24/18 18:54 Freq: Status: Active Protocol: Document 07/24/18 10:30 DLM (Rec: 07/25/18 19:24 DLM [id number]) Special Tests Lumbar Spine Special Tests Prone Knee Flexion Test Results negative bilaterally Comments left quad tighter than right Hip Special Tests Straight Leg Raise Test Results negative bilateral, less pain with SLR on left PT-OP-M Strength Start: 07/24/18 18:54 Freq: Status: Active Protocol: Document 07/24/18 10:30 DLM (Rec: 07/25/18 19:24 DLM [id number]) Trunk Strength Trunk Manual Muscle Testing Reason Not Measured Pain Comments pain interferes with her trunk strength Hip Strength Hip Manual Muscle Testing Left Flexion (L2) 4 Good Extension (S1) 5 Normal Abduction 3+ Fair+ Adduction 5 Normal External Rotation 4 Good Internal Rotation 4 Good Reason Not Measured Pain Comments pain with resisted left hip flexion Right Flexion (L2) 5 Normal Extension (S1) 4+ Good+ Abduction 5 Normal Adduction 5 Normal External Rotation 5 Normal Internal Rotation 5 Normal Knee Strength Knee Manual Muscle Testing Left Flexion (S2) 5 Normal Extension (L3) 5 Normal Right Flexion (S2) 5 Normal Extension (L3) 5 Normal Ankle/Foot Strength Ankle and Foot Manual Muscle Testing Left Dorsiflexion (L4) 5 Normal Right Dorsiflexion (L4) 5 Normal PT-OP-Q Treatments Start: 07/24/18 18:54 Freq: Status: Active Protocol: Document 08/07/18 10:30 GGD (Rec: 08/07/18 14:02 GGD [email or web address]) Cardio Equipment Recumbent Elliptical (Biodex) Duration (Minutes) 5 Resistance Level 3 Seat Position 5 Therapeutic Exercises Supine Exercises 6 Supine Exercise Name hooklying hip adduction Side bilateral Resistance pillow Reps/Minutes 10 reps 3 Supine Exercise Name single knee to chest stretch Resistance 3 reps each side Reps/Minutes hold 60 seconds 2 Supine Exercise Name bilateral hip abduction with therabanc Resistance Level 2 exercise band Reps/Minutes 2 x 10 reps Comments Hooklying 1 Supine Exercise Name bridges Comments cues for pain free Standing Exercises 3 Standing Exercise Name psoas stretch on stair Reps/Minutes 30 sec 1 Standing Exercise Name marching with core stabalization Side bilateral Reps/Minutes x 10 reps Comments mirror and cues to avoid post pelvic rotation when lifting right foot up Other Exercises 2 Other Exercise Name hip hinge rock back stretch Reps/Minutes x 10 reps Comments c/o tightness on left compared to right 1 Other Exercise Name cat cow Reps/Minutes 10 reps Comments Quadruped with towel under left hand Manual Therapy Treatment Soft Tissue Mobilization 2 Body Location left buttock Mobilization Type Myofascial Release Strumming Sustained Pressure Intensity/Depth Moderate Body Position Sidelying 1 Body Location left ITB Mobilization Type Cross-Friction Myofascial Release Strumming Intensity/Depth Moderate Body Position Sidelying PT-OP-R Modalities Start: 07/24/18 18:54 Freq: Status: Active Protocol: Document 08/03/18 10:30 DLM (Rec: 08/03/18 13:26 DLM [id number]) Ultrasound Therapy Treatment Left Hip Comments held today since pt is unsure if it is helping, assess next visit PT-OP-T Assessment and Plan Start: 07/24/18 18:54 Freq: Status: Active Protocol: Document 08/07/18 10:30 GGD (Rec: 08/07/18 14:02 GGD [email or web address]) Physical Therapy Assessment Assessment Summary Assessment Pt had improved tolerance to exericese. She had no increase in pain with execise with cues. Decrease C/O tenderness with STM. Physical Therapy Plan Frequency and Duration Frequency of Treatment 2x/Week Duration of Treatment 8 weeks Plan of Care Start Date 07/24/18 Plan of Care End Date 09/30/18 Therapeutic Interventions Therapeutic Interventions Aquatic Therapy Home Exercise Program Manual Therapy Patient/Caregiver Education Self-Care/Home Management Soft Tissue Mobilization Taping Therapeutic Activities Therapeutic Exercises Modalities Cold Pack/Ice Massage Electric Stimulation Hot Packs Ultrasound Next Visit Focus/Plan Next Note Type Treatment Note Next Visit Plan hip flexibility and strengthening.
--- NOTE | 2018-08-09 12:59 | PT.OTN ---
Current Diagnoses Other bursitis of hip, left hip (08/09/18) Physical Therapy Treatment Note PT-OP-A Visit Information Start: 07/24/18 18:54 Freq: Status: Active Protocol: Document 08/09/18 11:15 SAK (Rec: 08/09/18 12:02 SAK [id number]) Out-Patient Physical Therapy Visit Information Visit Information Visit Type Treatment Note Visit Start Time 11:15 Visit Stop Time 12:00 Total Visit Minutes 45 Visit Number 6/10 Number of SENIOR STRATEGY ANALYST Visits 0 Evaluation Information Evaluation Date 07/24/18 PT-OP-B Current Condition Start: 07/24/18 18:54 Freq: Status: Active Protocol: Document 07/24/18 10:30 DLM (Rec: 07/25/18 19:24 DLM [id number]) Current Condition History of Current Condition Onset Date 1 year ago Current Complaints left hip area pain, posterior and lateral History of Current Condition She reports her pain started about a year ago. She reports pain relief with prior physical therapy. She underwent an MRI since leaving therapy and has been diagnosed with a scoliosis. She had an injection yesturday . Her pain is limiting her ability to walk. She also has pain lying on left hip to sleep. Prior Treatments and Tests physical therapy injection x 2 MRI Treatment Goals Patient/Caregiver Goals be able to walk and hike for exercise Prior Functional Status Baseline Function- ADL's Independent Baseline Function- Mobility Independent Baseline Function- Gait Independent without device community distances Baseline Function- Work/School retired Baseline Function- Recreation/Hobbies likes to hike and walk for exercise goes to strength and balance class 2 x/week Current Functional Impairments (Reported) Functional Limitations- ADL's Independent, pain makes it hard to fall asleep, increased pain limits how long she can stand Functional Limitations- Mobility/Gait Independent gait without device but has limited her distances due to pain, unable to hike due to the pain, has tried a hiking stick Functional Limitations- Recreation/ unable to hike, continues to Hobbies participate in exercise class 2 x/week Personal Factors Other Personal Factors That May Effect 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 Compliant to HEP, but can't remember standing stair exercise. Patient Reported Progress Improving PT-OP-G Mobility & Gait Start: 07/24/18 18:54 Freq: Status: Active Protocol: Document 07/24/18 10:30 DLM (Rec: 07/25/18 19:24 DLM [id number]) OP Mobility Evaluation Bed Mobility Rolling increased pain but able to complete without assistance Supine to and from Sit increased pain but independent , unable to lie flat in supine due to pain and she keeps left knee flexed up Transfers Sit to Stand independent Bed to Chair Transfers independent OP Gait Assessment Gait Gait Assistance Required: Independent Assistive Devices Assistive Device None Gait Deviations General Gait Pattern Antalgic Factors Limiting Gait Function Factors Limiting Gait Function Decreased Strength Pain PT-OP-J Posture/Palpation/Skin Start: 07/24/18 18:54 Freq: Status: Active Protocol: Document 07/24/18 10:30 DLM (Rec: 07/25/18 19:24 DLM [id number]) Posture Evaluation Position Standing Evaluation View Posterior Head/C-Spine Posture Side Bent Left Forward Head T-Spine Posture Flexible Scoliosis on (R) L-Spine Posture Flattened Shifted Left Shoulder Posture (L) Elevated Palpation Assessment Location Two Palpation Location left buttock Palpation Findings Soft Tissue Tightness Tenderness Palpation Details left trochanter area also tender, this was also the area of her injection yesturday One Palpation Location lumbar paraspinals Palpation Findings Soft Tissue Tightness Palpation Details left tighter than right PT-OP-K Range of Motion Start: 07/24/18 18:54 Freq: Status: Active Protocol: Document 07/24/18 10:30 DLM (Rec: 07/25/18 19:24 DLM [id number]) Lumbar Spine Range of Motion Lumbar Spine Active Percentage Testing Position standing Flexion 100 Extension 80 Rotation Left 100 Rotation Right 80 Lateral Flexion Left 50 Lateral Flexion Right 100 ROM Limitations Soft Tissue Tightness Bony Restriction Pain Comments flexion- decreased pain left rotation- increased pain lateral flexion left- increased pain Hip Goniometric Range of Motion Hip Measured in Degrees Right Active Hip ROM WFL Yes Left Active Hip ROM WFL Yes Hip ROM Limitations Comments pain with left hip abduction ROM PT-OP-L Special Tests Start: 07/24/18 18:54 Freq: Status: Active Protocol: Document 07/24/18 10:30 DLM (Rec: 07/25/18 19:24 DL [id number]) Special Tests Lumbar Spine Special Tests Prone Knee Flexion Test Results negative bilaterally Comments left quad tighter than right Hip Special Tests Straight Leg Raise Test Results negative bilateral, less pain with SLR on left PT-OP-M Strength Start: 07/24/18 18:54 Freq: Status: Active Protocol: Document 07/24/18 10:30 DLM (Rec: 07/25/18 19:24 DL [id number]) Trunk Strength Trunk Manual Muscle Testing Reason Not Measured Pain Comments pain interferes with her trunk strength Hip Strength Hip Manual Muscle Testing Left Flexion (L2) 4 Good Extension (S1) 5 Normal Abduction 3+ Fair+ Adduction 5 Normal External Rotation 4 Good Internal Rotation 4 Good Reason Not Measured Pain Comments pain with resisted left hip flexion Right Flexion (L2) 5 Normal Extension (S1) 4+ Good+ Abduction 5 Normal Adduction 5 Normal External Rotation 5 Normal Internal Rotation 5 Normal Knee Strength Knee Manual Muscle Testing Left Flexion (S2) 5 Normal Extension (L3) 5 Normal Right Flexion (S2) 5 Normal Extension (L3) 5 Normal Ankle/Foot Strength Ankle and Foot Manual Muscle Testing Left Dorsiflexion (L4) 5 Normal Right Dorsiflexion (L4) 5 Normal PT-OP-Q Treatments Start: 07/24/18 18:54 Freq: Status: Active Protocol: Document 08/09/18 11:15 [facility] (Rec: 08/09/18 12:02 [facility] [id number]) Cardio Equipment Recumbent Stepper (Sci-Fit) Duration (Minutes) 5 Resistance 1.5 Seat Position 8 Therapeutic Exercises Supine Exercises 6 Supine Exercise Name hooklying hip adduction Side bilateral Resistance pillow Reps/Minutes 10 reps 3 Supine Exercise Name single knee to chest stretch Resistance 1 reps each side Reps/Minutes hold 60 seconds 2 Supine Exercise Name bilateral hip abduction with therabanc Resistance Level 2 exercise band Reps/Minutes 2 x 10 reps Comments Hooklying 1 Supine Exercise Name bridges Comments cues for pain free, yardstick at hips for visual symmetry cues Standing Exercises 3 Standing Exercise Name psoas stretch on stair Reps/Minutes 30 sec 2 Standing Exercise Name postural correction Equipment Used mirror 1 Standing Exercise Name marching with core stabalization Side bilateral Reps/Minutes x 10 reps Comments mirror and cues to avoid post pelvic rotation when lifting right foot up Other Exercises 2 Other Exercise Name hip hinge rock back stretch Reps/Minutes x 10 reps Comments c/o tightness on left compared to right 1 Other Exercise Name cat cow Reps/Minutes 10 reps Comments Quadruped with towel under left hand Manual Therapy Treatment Soft Tissue Mobilization 2 Body Location left buttock Mobilization Type Myofascial Release Strumming Sustained Pressure Intensity/Depth Moderate Body Position Sidelying 1 Body Location left ITB Mobilization Type Cross-Friction Myofascial Release Strumming Intensity/Depth Moderate Body Position Sidelying Self-Care/Home Management Treatment Education Patient Education Home Exercise Program Activities Self-Care/Home Management Activities updated written program. Cues for symmetrical positioning and movement. PT-OP-R Modalities Start: 07/24/18 18:54 Freq: Status: Active Protocol: Document 08/03/18 10:30 DLM (Rec: 08/03/18 13:26 DLM [id number]) Ultrasound Therapy Treatment Left Hip Comments held today since pt is unsure if it is helping, assess next visit PT-OP-T Assessment and Plan Start: 07/24/18 18:54 Freq: Status: Active Protocol: Document 08/09/18 11:15 SAK (Rec: 08/09/18 12:59 SAK [id number]) Physical Therapy Assessment Impairments Impairments Activity Tolerance Functional Activities Functional Mobility Gait Pain Posture ROM Soft Tissue Mobility Strength Goals Three Impairment pain interferes with her sleep Short Term Goal (STG) she will be able to lie flat in supine STG Duration 4 weeks Fpc Goal (LTG) Her pain will no longer make it hard for her to get to sleep LTG Duration 8 weeks Two Impairment LE weakness Short Term Goal (STG) Increase left hip abduction strength to at least 4/5 STG Duration 4 weeks Fpc Goal (LTG) Increase her LE strength to at least 4+/5 LTG Duration 8 weeks One Impairment pain 3/10 Short Term Goal (STG) She will be able to roll over in bed without increased left hip pain STG Duration 4 weeks Draw End Hand Goal (LTG) She will be able to walk a mile without increased left hip pain, with/without assistive device LTG Duration 8 weeks Progress Towards Goals Progress Comments Minimal pain with exercises, modifications allow her to perform without pain. Assessment Summary Assessment Patient needs verbal and manual cues for exercise performance including for symmetrical positioning of her body before initiating. Pain decreased. Updated written HEP. Physical Therapy Plan Frequency and Duration Frequency of Treatment 2x/Week Duration of Treatment 8 weeks Plan of Care Start Date 07/24/18 Plan of Care End Date 09/30/18 Therapeutic Interventions Therapeutic Interventions Aquatic Therapy Home Exercise Program Manual Therapy Patient/Caregiver Education Self-Care/Home Management Soft Tissue Mobilization Taping Therapeutic Activities Therapeutic Exercises Modalities Cold Pack/Ice Massage Electric Stimulation Hot Packs Ultrasound Next Visit Focus/Plan Next Note Type Treatment Note Next Visit Plan Continue PT for hip strengthening, flexibility, core stabilization.
--- NOTE | 2018-08-14 15:59 | PT.OTN ---
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 She reports pain relief with prior physical therapy. She underwent an MRI since leaving therapy and has been diagnosed with a scoliosis. She had an injection yesturday . Her pain is limiting her ability to walk. She also has pain lying on left hip to sleep. Prior Treatments and Tests physical therapy injection x 2 MRI Treatment Goals Patient/Caregiver Goals be able to walk and hike for exercise Prior Functional Status Baseline Function- ADL's Independent Baseline Function- Mobility Independent Baseline Function- Gait Independent without device community distances Baseline Function- Work/School retired Baseline Function- Recreation/Hobbies likes to hike and walk for exercise goes to strength and balance class 2 x/week Current Functional Impairments (Reported) Functional Limitations- ADL's Independent, pain makes it hard to fall asleep, increased pain limits how long she can stand Functional Limitations- Mobility/Gait Independent gait without device but has limited her distances due to pain, unable to hike due to the pain, has tried a hiking stick Functional Limitations- Recreation/ unable to hike, continues to Hobbies participate in exercise class 2 x/week Personal Factors Other Personal Factors That May Effect 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 PT-OP-G Mobility & Gait Start: 07/24/18 18:54 Freq: Status: Active Protocol: Document 07/24/18 10:30 DLM (Rec: 07/25/18 19:24 DLM [id number]) OP Mobility Evaluation Bed Mobility Rolling increased pain but able to complete without assistance Supine to and from Sit increased pain but independent , unable to lie flat in supine due to pain and she keeps left knee flexed up Transfers Sit to Stand independent Bed to Chair Transfers independent OP Gait Assessment Gait Gait Assistance Required: Independent Assistive Devices Assistive Device None Gait Deviations General Gait Pattern Antalgic Factors Limiting Gait Function Factors Limiting Gait Function Decreased Strength Pain PT-OP-J Posture/Palpation/Skin Start: 07/24/18 18:54 Freq: Status: Active Protocol: Document 07/24/18 10:30 DLM (Rec: 07/25/18 19:24 DLM [id number]) Posture Evaluation Position Standing Evaluation View Posterior Head/C-Spine Posture Side Bent Left Forward Head T-Spine Posture Flexible Scoliosis on (R) L-Spine Posture Flattened Shifted Left Shoulder Posture (L) Elevated Palpation Assessment Location Two Palpation Location left buttock Palpation Findings Soft Tissue Tightness Tenderness Palpation Details left trochanter area also tender, this was also the area of her injection yesturday One Palpation Location lumbar paraspinals Palpation Findings Soft Tissue Tightness Palpation Details left tighter than right PT-OP-K Range of Motion Start: 07/24/18 18:54 Freq: Status: Active Protocol: Document 07/24/18 10:30 DLM (Rec: 07/25/18 19:24 DLM [id number]) Lumbar Spine Range of Motion Lumbar Spine Active Percentage Testing Position standing Flexion 100 Extension 80 Rotation Left 100 Rotation Right 80 Lateral Flexion Left 50 Lateral Flexion Right 100 ROM Limitations Soft Tissue Tightness Bony Restriction Pain Comments flexion- decreased pain left rotation- increased pain lateral flexion left- increased pain Hip Goniometric Range of Motion Hip Measured in Degrees Right Active Hip ROM WFL Yes Left Active Hip ROM WFL Yes Hip ROM Limitations Comments pain with left hip abduction ROM PT-OP-L Special Tests Start: 07/24/18 18:54 Freq: Status: Active Protocol: Document 07/24/18 10:30 DLM (Rec: 07/25/18 19:24 DLM [id number]) Special Tests Lumbar Spine Special Tests Prone Knee Flexion Test Results negative bilaterally Comments left quad tighter than right Hip Special Tests Straight Leg Raise Test Results negative bilateral, less pain with SLR on left PT-OP-M Strength Start: 07/24/18 18:54 Freq: Status: Active Protocol: Document 07/24/18 10:30 DLM (Rec: 07/25/18 19:24 DLM [id number]) Trunk Strength Trunk Manual Muscle Testing Reason Not Measured Pain Comments pain interferes with her trunk strength Hip Strength Hip Manual Muscle Testing Left Flexion (L2) 4 Good Extension (S1) 5 Normal Abduction 3+ Fair+ Adduction 5 Normal External Rotation 4 Good Internal Rotation 4 Good Reason Not Measured Pain Comments pain with resisted left hip flexion Right Flexion (L2) 5 Normal Extension (S1) 4+ Good+ Abduction 5 Normal Adduction 5 Normal External Rotation 5 Normal Internal Rotation 5 Normal Knee Strength Knee Manual Muscle Testing Left Flexion (S2) 5 Normal Extension (L3) 5 Normal Right Flexion (S2) 5 Normal Extension (L3) 5 Normal Ankle/Foot Strength Ankle and Foot Manual Muscle Testing Left Dorsiflexion (L4) 5 Normal Right Dorsiflexion (L4) 5 Normal PT-OP-Q Treatments Start: 07/24/18 18:54 Freq: Status: Active Protocol: Document 08/14/18 10:30 GGD (Rec: 08/14/18 15:59 GGD [email or web address]) Cardio Equipment Recumbent Stepper (Sci-Fit) Duration (Minutes) 5 Resistance 1.5 Seat Position 8 Therapeutic Exercises Supine Exercises 6 Supine Exercise Name hooklying hip adduction Side bilateral Resistance pillow Reps/Minutes 10 reps 3 Supine Exercise Name single knee to chest stretch Resistance 1 reps each side Reps/Minutes hold 60 seconds 2 Supine Exercise Name bilateral hip abduction with therabanc Resistance Level 2 exercise band Reps/Minutes 2 x 10 reps Comments Hooklying 1 Supine Exercise Name bridges Comments cues for pain free, yardstick at hips for visual symmetry cues Sidelying Exercises 1 Sidelying Exercise Name clam shells Reps/Minutes 2 x 10 reps Standing Exercises 3 Standing Exercise Name psoas stretch on stair Reps/Minutes 30 sec 2 Standing Exercise Name postural correction Equipment Used mirror 1 Standing Exercise Name marching with core stabalization Side bilateral Reps/Minutes x 10 reps Comments mirror and cues to avoid post pelvic rotation when lifting right foot up Other Exercises 2 Other Exercise Name hip hinge rock back stretch Reps/Minutes x 10 reps Comments c/o tightness on left compared to right 1 Other Exercise Name cat cow Reps/Minutes 10 reps Comments Quadruped with towel under left hand Manual Therapy Treatment Soft Tissue Mobilization 2 Body Location left buttock Mobilization Type Myofascial Release Strumming Sustained Pressure Intensity/Depth Moderate Body Position Sidelying 1 Body Location left ITB Mobilization Type Cross-Friction Myofascial Release Strumming Intensity/Depth Moderate Body Position Sidelying PT-OP-R Modalities Start: 07/24/18 18:54 Freq: Status: Active Protocol: Document 08/03/18 10:30 DLM (Rec: 08/03/18 13:26 DLM [id number]) Ultrasound Therapy Treatment Left Hip Comments held today since pt is unsure if it is helping, assess next visit PT-OP-T Assessment and Plan Start: 07/24/18 18:54 Freq: Status: Active Protocol: Document 08/14/18 10:30 GGD (Rec: 08/14/18 15:59 GGD [email or web address]) Physical Therapy Assessment Assessment Summary Assessment Pt improving with posture in standing and with gait. She needing less cueing for exercise techinque. Physical Therapy Plan Frequency and Duration Frequency of Treatment 2x/Week Duration of Treatment 8 weeks Plan of Care Start Date 07/24/18 Plan of Care End Date 09/30/18 Therapeutic Interventions Therapeutic Interventions Aquatic Therapy Home Exercise Program Manual Therapy Patient/Caregiver Education Self-Care/Home Management Soft Tissue Mobilization Taping Therapeutic Activities Therapeutic Exercises Modalities Cold Pack/Ice Massage Electric Stimulation Hot Packs Ultrasound Next Visit Focus/Plan Next Note Type Treatment Note Next Visit Plan hip strengthening, flexibility , core stabilization.
--- NOTE | 2018-08-16 13:16 | PT.OTN ---
Current Diagnoses Other bursitis of hip, left hip (08/16/18) Physical Therapy Treatment Note PT-OP-A Visit Information Start: 07/24/18 18:54 Freq: Status: Active Protocol: Document 08/16/18 11:16 SAK (Rec: 08/16/18 11:56 SAK [id number]) Out-Patient Physical Therapy Visit Information Visit Information Visit Type Treatment Note Visit Start Time 10:30 Visit Stop Time 11:15 Total Visit Minutes 45 Visit Number 8/10 Number of MUSIC PUBLISHER Visits 0 Evaluation Information Evaluation Date 07/24/18 PT-OP-B Current Condition Start: 07/24/18 18:54 Freq: Status: Active Protocol: Document 07/24/18 10:30 DLM (Rec: 07/25/18 19:24 DLM [id number]) Current Condition History of Current Condition Onset Date 1 year ago Current Complaints left hip area pain, posterior and lateral History of Current Condition She reports her pain started about a year ago. She reports pain relief with prior physical therapy. She underwent an MRI since leaving therapy and has been diagnosed with a scoliosis. She had an injection yesturday . Her pain is limiting her ability to walk. She also has pain lying on left hip to sleep. Prior Treatments and Tests physical therapy injection x 2 MRI Treatment Goals Patient/Caregiver Goals be able to walk and hike for exercise Prior Functional Status Baseline Function- ADL's Independent Baseline Function- Mobility Independent Baseline Function- Gait Independent without device community distances Baseline Function- Work/School retired Baseline Function- Recreation/Hobbies likes to hike and walk for exercise goes to strength and balance class 2 x/week Current Functional Impairments (Reported) Functional Limitations- ADL's Independent, pain makes it hard to fall asleep, increased pain limits how long she can stand Functional Limitations- Mobility/Gait Independent gait without device but has limited her distances due to pain, unable to hike due to the pain, has tried a hiking stick Functional Limitations- Recreation/ unable to hike, continues to Hobbies participate in exercise class 2 x/week Personal Factors Other Personal Factors That May Effect 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 PT-OP-G Mobility & Gait Start: 07/24/18 18:54 Freq: Status: Active Protocol: Document 07/24/18 10:30 DLM (Rec: 07/25/18 19:24 DLM [id number]) OP Mobility Evaluation Bed Mobility Rolling increased pain but able to complete without assistance Supine to and from Sit increased pain but independent , unable to lie flat in supine due to pain and she keeps left knee flexed up Transfers Sit to Stand independent Bed to Chair Transfers independent OP Gait Assessment Gait Gait Assistance Required: Independent Assistive Devices Assistive Device None Gait Deviations General Gait Pattern Antalgic Factors Limiting Gait Function Factors Limiting Gait Function Decreased Strength Pain PT-OP-J Posture/Palpation/Skin Start: 07/24/18 18:54 Freq: Status: Active Protocol: Document 07/24/18 10:30 DLM (Rec: 07/25/18 19:24 DLM [id number]) Posture Evaluation Position Standing Evaluation View Posterior Head/C-Spine Posture Side Bent Left Forward Head T-Spine Posture Flexible Scoliosis on (R) L-Spine Posture Flattened Shifted Left Shoulder Posture (L) Elevated Palpation Assessment Location Two Palpation Location left buttock Palpation Findings Soft Tissue Tightness Tenderness Palpation Details left trochanter area also tender, this was also the area of her injection yesturday One Palpation Location lumbar paraspinals Palpation Findings Soft Tissue Tightness Palpation Details left tighter than right PT-OP-K Range of Motion Start: 07/24/18 18:54 Freq: Status: Active Protocol: Document 07/24/18 10:30 DLM (Rec: 07/25/18 19:24 DLM [id number]) Lumbar Spine Range of Motion Lumbar Spine Active Percentage Testing Position standing Flexion 100 Extension 80 Rotation Left 100 Rotation Right 80 Lateral Flexion Left 50 Lateral Flexion Right 100 ROM Limitations Soft Tissue Tightness Bony Restriction Pain Comments flexion- decreased pain left rotation- increased pain lateral flexion left- increased pain Hip Goniometric Range of Motion Hip Measured in Degrees Right Active Hip ROM WFL Yes Left Active Hip ROM WFL Yes Hip ROM Limitations Comments pain with left hip abduction ROM PT-OP-L Special Tests Start: 07/24/18 18:54 Freq: Status: Active Protocol: Document 07/24/18 10:30 DLM (Rec: 07/25/18 19:24 DLM [id number]) Special Tests Lumbar Spine Special Tests Prone Knee Flexion Test Results negative bilaterally Comments left quad tighter than right Hip Special Tests Straight Leg Raise Test Results negative bilateral, less pain with SLR on left PT-OP-M Strength Start: 07/24/18 18:54 Freq: Status: Active Protocol: Document 07/24/18 10:30 DLM (Rec: 07/25/18 19:24 DL [id number]) Trunk Strength Trunk Manual Muscle Testing Reason Not Measured Pain Comments pain interferes with her trunk strength Hip Strength Hip Manual Muscle Testing Left Flexion (L2) 4 Good Extension (S1) 5 Normal Abduction 3+ Fair+ Adduction 5 Normal External Rotation 4 Good Internal Rotation 4 Good Reason Not Measured Pain Comments pain with resisted left hip flexion Right Flexion (L2) 5 Normal Extension (S1) 4+ Good+ Abduction 5 Normal Adduction 5 Normal External Rotation 5 Normal Internal Rotation 5 Normal Knee Strength Knee Manual Muscle Testing Left Flexion (S2) 5 Normal Extension (L3) 5 Normal Right Flexion (S2) 5 Normal Extension (L3) 5 Normal Ankle/Foot Strength Ankle and Foot Manual Muscle Testing Left Dorsiflexion (L4) 5 Normal Right Dorsiflexion (L4) 5 Normal PT-OP-Q Treatments Start: 07/24/18 18:54 Freq: Status: Active Protocol: Document 08/16/18 11:16 SAK (Rec: 08/16/18 11:56 SAK [id number]) Cardio Equipment Recumbent Stepper (Sci-Fit) Duration (Minutes) 8 Resistance 2.0 Seat Position 8 Other cues for neutral alignment Gym Equipment Shuttle Recovery Unilateral Squats Resistance 37 Shuttle Recovery Platform Stable Bilateral Squats Resistance 62 Shuttle Recovery Platform Stable Therapeutic Exercises Supine Exercises 1 Supine Exercise Name bridges Comments cues for pain free, yardstick at hips for visual symmetry cues Sidelying Exercises 1 Sidelying Exercise Name clam shells Reps/Minutes 2 x 10 reps Standing Exercises 3 Standing Exercise Name psoas stretch on stair Reps/Minutes 30 sec 2 Standing Exercise Name postural correction Equipment Used mirror 1 Standing Exercise Name marching with core stabalization Side bilateral Reps/Minutes x 10 reps Comments mirror and cues to avoid post pelvic rotation when lifting right foot up Other Exercises 2 Other Exercise Name hip hinge rock back stretch Reps/Minutes x 10 reps Comments c/o tightness on left compared to right 1 Other Exercise Name cat cow Reps/Minutes 10 reps Comments Quadruped with towel under left hand Manual Therapy Treatment Soft Tissue Mobilization 2 Body Location left buttock Mobilization Type Myofascial Release Strumming Sustained Pressure Intensity/Depth Moderate Body Position Sidelying 1 Body Location left ITB Mobilization Type Cross-Friction Myofascial Release Strumming Intensity/Depth Moderate Body Position Sidelying Self-Care/Home Management Treatment Education Other Education use of tennis ball for self- massage of piriformis PT-OP-R Modalities Start: 07/24/18 18:54 Freq: Status: Active Protocol: Document 08/03/18 10:30 DLM (Rec: 08/03/18 13:26 DLM [id number]) Ultrasound Therapy Treatment Left Hip Comments held today since pt is unsure if it is helping, assess next visit PT-OP-T Assessment and Plan Start: 07/24/18 18:54 Freq: Status: Active Protocol: Document 08/14/18 10:30 GGD (Rec: 08/14/18 15:59 GGD [email or web address]) Physical Therapy Assessment Assessment Summary Assessment Pt improving with posture in standing and with gait. She needing less cueing for exercise techinque. Physical Therapy Plan Frequency and Duration Frequency of Treatment 2x/Week Duration of Treatment 8 weeks Plan of Care Start Date 07/24/18 Plan of Care End Date 09/30/18 Therapeutic Interventions Therapeutic Interventions Aquatic Therapy Home Exercise Program Manual Therapy Patient/Caregiver Education Self-Care/Home Management Soft Tissue Mobilization Taping Therapeutic Activities Therapeutic Exercises Modalities Cold Pack/Ice Massage Electric Stimulation Hot Packs Ultrasound Next Visit Focus/Plan Next Note Type Treatment Note Next Visit Plan hip strengthening, flexibility , core stabilization.
--- NOTE | 2018-08-21 14:11 | PT.OTN ---
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 She reports pain relief with prior physical therapy. She underwent an MRI since leaving therapy and has been diagnosed with a scoliosis. She had an injection yesturday . Her pain is limiting her ability to walk. She also has pain lying on left hip to sleep. Prior Treatments and Tests physical therapy injection x 2 MRI Treatment Goals Patient/Caregiver Goals be able to walk and hike for exercise Prior Functional Status Baseline Function- ADL's Independent Baseline Function- Mobility Independent Baseline Function- Gait Independent without device community distances Baseline Function- Work/School retired Baseline Function- Recreation/Hobbies likes to hike and walk for exercise goes to strength and balance class 2 x/week Current Functional Impairments (Reported) Functional Limitations- ADL's Independent, pain makes it hard to fall asleep, increased pain limits how long she can stand Functional Limitations- Mobility/Gait Independent gait without device but has limited her distances due to pain, unable to hike due to the pain, has tried a hiking stick Functional Limitations- Recreation/ unable to hike, continues to Hobbies participate in exercise class 2 x/week Personal Factors Other Personal Factors That May Effect 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 Patient Reported Progress Improving PT-OP-G Mobility & Gait Start: 07/24/18 18:54 Freq: Status: Active Protocol: Document 07/24/18 10:30 DLM (Rec: 07/25/18 19:24 DLM [id number]) OP Mobility Evaluation Bed Mobility Rolling increased pain but able to complete without assistance Supine to and from Sit increased pain but independent , unable to lie flat in supine due to pain and she keeps left knee flexed up Transfers Sit to Stand independent Bed to Chair Transfers independent OP Gait Assessment Gait Gait Assistance Required: Independent Assistive Devices Assistive Device None Gait Deviations General Gait Pattern Antalgic Factors Limiting Gait Function Factors Limiting Gait Function Decreased Strength Pain PT-OP-J Posture/Palpation/Skin Start: 07/24/18 18:54 Freq: Status: Active Protocol: Document 07/24/18 10:30 DLM (Rec: 07/25/18 19:24 DL [id number]) Posture Evaluation Position Standing Evaluation View Posterior Head/C-Spine Posture Side Bent Left Forward Head T-Spine Posture Flexible Scoliosis on (R) L-Spine Posture Flattened Shifted Left Shoulder Posture (L) Elevated Palpation Assessment Location Two Palpation Location left buttock Palpation Findings Soft Tissue Tightness Tenderness Palpation Details left trochanter area also tender, this was also the area of her injection yesturday One Palpation Location lumbar paraspinals Palpation Findings Soft Tissue Tightness Palpation Details left tighter than right PT-OP-K Range of Motion Start: 07/24/18 18:54 Freq: Status: Active Protocol: Document 07/24/18 10:30 DLM (Rec: 07/25/18 19:24 DLM [id number]) Lumbar Spine Range of Motion Lumbar Spine Active Percentage Testing Position standing Flexion 100 Extension 80 Rotation Left 100 Rotation Right 80 Lateral Flexion Left 50 Lateral Flexion Right 100 ROM Limitations Soft Tissue Tightness Bony Restriction Pain Comments flexion- decreased pain left rotation- increased pain lateral flexion left- increased pain Hip Goniometric Range of Motion Hip Measured in Degrees Right Active Hip ROM WFL Yes Left Active Hip ROM WFL Yes Hip ROM Limitations Comments pain with left hip abduction ROM PT-OP-L Special Tests Start: 07/24/18 18:54 Freq: Status: Active Protocol: Document 07/24/18 10:30 DLM (Rec: 07/25/18 19:24 DLM [id number]) Special Tests Lumbar Spine Special Tests Prone Knee Flexion Test Results negative bilaterally Comments left quad tighter than right Hip Special Tests Straight Leg Raise Test Results negative bilateral, less pain with SLR on left PT-OP-M Strength Start: 07/24/18 18:54 Freq: Status: Active Protocol: Document 07/24/18 10:30 DLM (Rec: 07/25/18 19:24 DLM [id number]) Trunk Strength Trunk Manual Muscle Testing Reason Not Measured Pain Comments pain interferes with her trunk strength Hip Strength Hip Manual Muscle Testing Left Flexion (L2) 4 Good Extension (S1) 5 Normal Abduction 3+ Fair+ Adduction 5 Normal External Rotation 4 Good Internal Rotation 4 Good Reason Not Measured Pain Comments pain with resisted left hip flexion Right Flexion (L2) 5 Normal Extension (S1) 4+ Good+ Abduction 5 Normal Adduction 5 Normal External Rotation 5 Normal Internal Rotation 5 Normal Knee Strength Knee Manual Muscle Testing Left Flexion (S2) 5 Normal Extension (L3) 5 Normal Right Flexion (S2) 5 Normal Extension (L3) 5 Normal Ankle/Foot Strength Ankle and Foot Manual Muscle Testing Left Dorsiflexion (L4) 5 Normal Right Dorsiflexion (L4) 5 Normal PT-OP-Q Treatments Start: 07/24/18 18:54 Freq: Status: Active Protocol: Document 08/21/18 14:04 SA (Rec: 08/21/18 14:11 SA [email or web address]) Cardio Equipment Recumbent Stepper (Sci-Fit) Duration (Minutes) 7 Resistance 2.0 Seat Position 8 Other cues for neutral alignment Gym Equipment Shuttle Recovery Unilateral Squats Resistance 37 Shuttle Recovery Platform Stable Reps/Time 2x 15 Bilateral Squats Resistance 62 Shuttle Recovery Platform Stable Reps/Time 2 x 15 Therapeutic Exercises Supine Exercises 6 Supine Exercise Name hooklying hip adduction Side bilateral Resistance pillow Reps/Minutes 10 reps 3 Supine Exercise Name single knee to chest stretch Resistance 1 reps each side Reps/Minutes hold 60 seconds 2 Supine Exercise Name bilateral hip abduction with therabanc Resistance Level 2 exercise band Reps/Minutes 2 x 10 reps Comments Hooklying 1 Supine Exercise Name bridges Comments cues for pain free, yardstick at hips for visual symmetry cues Sidelying Exercises 1 Sidelying Exercise Name clam shells Reps/Minutes 2 x 10 reps Standing Exercises 3 Standing Exercise Name psoas stretch on stair Reps/Minutes 30 sec 2 Standing Exercise Name postural correction Equipment Used mirror 1 Standing Exercise Name marching with core stabalization Side bilateral Reps/Minutes x 10 reps Comments mirror and cues to avoid post pelvic rotation when lifting right foot up Other Exercises 2 Other Exercise Name hip hinge rock back stretch Reps/Minutes x 10 reps Comments c/o tightness on left compared to right Manual Therapy Treatment Soft Tissue Mobilization 2 Body Location left buttock Mobilization Type Myofascial Release Strumming Sustained Pressure Intensity/Depth Moderate Body Position Sidelying 1 Body Location left ITB Mobilization Type Cross-Friction Myofascial Release Strumming Intensity/Depth Moderate Body Position Sidelying PT-OP-R Modalities Start: 07/24/18 18:54 Freq: Status: Active Protocol: Document 08/03/18 10:30 DLM (Rec: 08/03/18 13:26 DLM [id number]) Ultrasound Therapy Treatment Left Hip Comments held today since pt is unsure if it is helping, assess next visit PT-OP-T Assessment and Plan Start: 07/24/18 18:54 Freq: Status: Active Protocol: Document 08/21/18 14:04 SA (Rec: 08/21/18 14:11 SA [email or web address]) Physical Therapy Assessment Assessment Summary Assessment Pt making strength gains and having decreased c/o pain, Standing posture continues to be difficult to maintain. Physical Therapy Plan Next Visit Focus/Plan Next Note Type Treatment Note Next Visit Plan Continue hip/core strengthening. Progress postural training and self assessment, using mirror helps .
--- NOTE | 2018-08-30 16:06 | PT.OPPN ---
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 She reports pain relief with prior physical therapy. She underwent an MRI since leaving therapy and has been diagnosed with a scoliosis. She had an injection yesturday . Her pain is limiting her ability to walk. She also has pain lying on left hip to sleep. Prior Treatments and Tests physical therapy injection x 2 MRI Treatment Goals Patient/Caregiver Goals be able to walk and hike for exercise Prior Functional Status Baseline Function- ADL's Independent Baseline Function- Mobility Independent Baseline Function- Gait Independent without device community distances Baseline Function- Work/School retired Baseline Function- Recreation/Hobbies likes to hike and walk for exercise goes to strength and balance class 2 x/week Current Functional Impairments (Reported) Functional Limitations- ADL's Independent, pain makes it hard to fall asleep, increased pain limits how long she can stand Functional Limitations- Mobility/Gait Independent gait without device but has limited her distances due to pain, unable to hike due to the pain, has tried a hiking stick Functional Limitations- Recreation/ unable to hike, continues to Hobbies participate in exercise class 2 x/week Personal Factors Other Personal Factors That May Effect 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 She is walking 3 blocks now Patient Reported Progress Improving PT-OP-G Mobility & Gait Start: 07/24/18 18:54 Freq: Status: Active Protocol: Document 07/24/18 10:30 DLM (Rec: 07/25/18 19:24 DLM [id number]) OP Mobility Evaluation Bed Mobility Rolling increased pain but able to complete without assistance Supine to and from Sit increased pain but independent , unable to lie flat in supine due to pain and she keeps left knee flexed up Transfers Sit to Stand independent Bed to Chair Transfers independent OP Gait Assessment Gait Gait Assistance Required: Independent Assistive Devices Assistive Device None Gait Deviations General Gait Pattern Antalgic Factors Limiting Gait Function Factors Limiting Gait Function Decreased Strength Pain PT-OP-J Posture/Palpation/Skin Start: 07/24/18 18:54 Freq: Status: Active Protocol: Document 07/24/18 10:30 DLM (Rec: 07/25/18 19:24 DL [id number]) Posture Evaluation Position Standing Evaluation View Posterior Head/C-Spine Posture Side Bent Left Forward Head T-Spine Posture Flexible Scoliosis on (R) L-Spine Posture Flattened Shifted Left Shoulder Posture (L) Elevated Palpation Assessment Location Two Palpation Location left buttock Palpation Findings Soft Tissue Tightness Tenderness Palpation Details left trochanter area also tender, this was also the area of her injection yesturday One Palpation Location lumbar paraspinals Palpation Findings Soft Tissue Tightness Palpation Details left tighter than right PT-OP-K Range of Motion Start: 07/24/18 18:54 Freq: Status: Active Protocol: Document 07/24/18 10:30 DLM (Rec: 07/25/18 19:24 DLM [id number]) Lumbar Spine Range of Motion Lumbar Spine Active Percentage Testing Position standing Flexion 100 Extension 80 Rotation Left 100 Rotation Right 80 Lateral Flexion Left 50 Lateral Flexion Right 100 ROM Limitations Soft Tissue Tightness Bony Restriction Pain Comments flexion- decreased pain left rotation- increased pain lateral flexion left- increased pain Hip Goniometric Range of Motion Hip Measured in Degrees Right Active Hip ROM WFL Yes Left Active Hip ROM WFL Yes Hip ROM Limitations Comments pain with left hip abduction ROM PT-OP-L Special Tests Start: 07/24/18 18:54 Freq: Status: Active Protocol: Document 07/24/18 10:30 DLM (Rec: 07/25/18 19:24 DLM [id number]) Special Tests Lumbar Spine Special Tests Prone Knee Flexion Test Results negative bilaterally Comments left quad tighter than right Hip Special Tests Straight Leg Raise Test Results negative bilateral, less pain with SLR on left PT-OP-M Strength Start: 07/24/18 18:54 Freq: Status: Active Protocol: Document 07/24/18 10:30 DLM (Rec: 07/25/18 19:24 DLM [id number]) Trunk Strength Trunk Manual Muscle Testing Reason Not Measured Pain Comments pain interferes with her trunk strength Hip Strength Hip Manual Muscle Testing Left Flexion (L2) 4 Good Extension (S1) 5 Normal Abduction 3+ Fair+ Adduction 5 Normal External Rotation 4 Good Internal Rotation 4 Good Reason Not Measured Pain Comments pain with resisted left hip flexion Right Flexion (L2) 5 Normal Extension (S1) 4+ Good+ Abduction 5 Normal Adduction 5 Normal External Rotation 5 Normal Internal Rotation 5 Normal Knee Strength Knee Manual Muscle Testing Left Flexion (S2) 5 Normal Extension (L3) 5 Normal Right Flexion (S2) 5 Normal Extension (L3) 5 Normal Ankle/Foot Strength Ankle and Foot Manual Muscle Testing Left Dorsiflexion (L4) 5 Normal Right Dorsiflexion (L4) 5 Normal PT-OP-T Assessment and Plan Start: 07/24/18 18:54 Freq: Status: Active Protocol: Document 08/30/18 16:00 AMH (Rec: 08/30/18 16:05 AMH [email or web address]) Physical Therapy Assessment Progress Towards Goals Progress Towards Goals Progressing Toward Goals Assessment Summary Assessment Eryn is making good progress towards her goals. She reports decreased hip pain overall and is standing in better hip alignment. Hip abduction is still a challenge for her in standing on the left so treatment will continue to work towards lateral hip stabilization. She has little to no pain to palpation over the lateral hip now. She would benefit from continued PT Physical Therapy Plan Frequency and Duration Frequency of Treatment 2x/Week Duration of Treatment 8 weeks Plan of Care Start Date 07/24/18 Plan of Care End Date 09/30/18 Therapeutic Interventions Therapeutic Interventions Aquatic Therapy Home Exercise Program Manual Therapy Patient/Caregiver Education Self-Care/Home Management Soft Tissue Mobilization Taping Therapeutic Activities Therapeutic Exercises Modalities Cold Pack/Ice Massage Electric Stimulation Hot Packs Ultrasound Next Visit Focus/Plan Next Note Type Treatment Note Next Visit Plan Continue hip/core strengthening. Progress postural training and self assessment, continue to progress hip abduction
--- NOTE | 2018-08-30 16:08 | PT.OTN ---
Current Diagnoses Other bursitis of hip, left hip (08/30/18) Physical Therapy Treatment Note PT-OP-A Visit Information Start: 07/24/18 18:54 Freq: Status: Active Protocol: Document 08/30/18 16:00 [facility] (Rec: 08/30/18 16:05 [facility] [email or web address]) Out-Patient Physical Therapy Visit Information Visit Information Visit Type Progress Note Visit Start Time 14:30 Visit Stop Time 15:15 Total Visit Minutes 45 Visit Number 10 Number of RIGGING FOREMAN Visits 0 PT-OP-B Current Condition Start: 07/24/18 18:54 Freq: Status: Active Protocol: Document 07/24/18 10:30 DLM (Rec: 07/25/18 19:24 DLM [id number]) Current Condition History of Current Condition Onset Date 1 year ago Current Complaints left hip area pain, posterior and lateral History of Current Condition She reports her pain started about a year ago. She reports pain relief with prior physical therapy. She underwent an MRI since leaving therapy and has been diagnosed with a scoliosis. She had an injection yesturday . Her pain is limiting her ability to walk. She also has pain lying on left hip to sleep. Prior Treatments and Tests physical therapy injection x 2 MRI Treatment Goals Patient/Caregiver Goals be able to walk and hike for exercise Prior Functional Status Baseline Function- ADL's Independent Baseline Function- Mobility Independent Baseline Function- Gait Independent without device community distances Baseline Function- Work/School retired Baseline Function- Recreation/Hobbies likes to hike and walk for exercise goes to strength and balance class 2 x/week Current Functional Impairments (Reported) Functional Limitations- ADL's Independent, pain makes it hard to fall asleep, increased pain limits how long she can stand Functional Limitations- Mobility/Gait Independent gait without device but has limited her distances due to pain, unable to hike due to the pain, has tried a hiking stick Functional Limitations- Recreation/ unable to hike, continues to Hobbies participate in exercise class 2 x/week Personal Factors Other Personal Factors That May Effect 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 She is walking 3 blocks now Patient Reported Progress Improving PT-OP-G Mobility & Gait Start: 07/24/18 18:54 Freq: Status: Active Protocol: Document 07/24/18 10:30 DLM (Rec: 07/25/18 19:24 DLM [id number]) OP Mobility Evaluation Bed Mobility Rolling increased pain but able to complete without assistance Supine to and from Sit increased pain but independent , unable to lie flat in supine due to pain and she keeps left knee flexed up Transfers Sit to Stand independent Bed to Chair Transfers independent OP Gait Assessment Gait Gait Assistance Required: Independent Assistive Devices Assistive Device None Gait Deviations General Gait Pattern Antalgic Factors Limiting Gait Function Factors Limiting Gait Function Decreased Strength Pain PT-OP-J Posture/Palpation/Skin Start: 07/24/18 18:54 Freq: Status: Active Protocol: Document 07/24/18 10:30 DLM (Rec: 07/25/18 19:24 DL [id number]) Posture Evaluation Position Standing Evaluation View Posterior Head/C-Spine Posture Side Bent Left Forward Head T-Spine Posture Flexible Scoliosis on (R) L-Spine Posture Flattened Shifted Left Shoulder Posture (L) Elevated Palpation Assessment Location Two Palpation Location left buttock Palpation Findings Soft Tissue Tightness Tenderness Palpation Details left trochanter area also tender, this was also the area of her injection yesturday One Palpation Location lumbar paraspinals Palpation Findings Soft Tissue Tightness Palpation Details left tighter than right PT-OP-K Range of Motion Start: 07/24/18 18:54 Freq: Status: Active Protocol: Document 07/24/18 10:30 DLM (Rec: 07/25/18 19:24 DLM [id number]) Lumbar Spine Range of Motion Lumbar Spine Active Percentage Testing Position standing Flexion 100 Extension 80 Rotation Left 100 Rotation Right 80 Lateral Flexion Left 50 Lateral Flexion Right 100 ROM Limitations Soft Tissue Tightness Bony Restriction Pain Comments flexion- decreased pain left rotation- increased pain lateral flexion left- increased pain Hip Goniometric Range of Motion Hip Measured in Degrees Right Active Hip ROM WFL Yes Left Active Hip ROM WFL Yes Hip ROM Limitations Comments pain with left hip abduction ROM PT-OP-L Special Tests Start: 07/24/18 18:54 Freq: Status: Active Protocol: Document 07/24/18 10:30 DLM (Rec: 07/25/18 19:24 DLM [id number]) Special Tests Lumbar Spine Special Tests Prone Knee Flexion Test Results negative bilaterally Comments left quad tighter than right Hip Special Tests Straight Leg Raise Test Results negative bilateral, less pain with SLR on left PT-OP-M Strength Start: 07/24/18 18:54 Freq: Status: Active Protocol: Document 07/24/18 10:30 DLM (Rec: 07/25/18 19:24 DLM [id number]) Trunk Strength Trunk Manual Muscle Testing Reason Not Measured Pain Comments pain interferes with her trunk strength Hip Strength Hip Manual Muscle Testing Left Flexion (L2) 4 Good Extension (S1) 5 Normal Abduction 3+ Fair+ Adduction 5 Normal External Rotation 4 Good Internal Rotation 4 Good Reason Not Measured Pain Comments pain with resisted left hip flexion Right Flexion (L2) 5 Normal Extension (S1) 4+ Good+ Abduction 5 Normal Adduction 5 Normal External Rotation 5 Normal Internal Rotation 5 Normal Knee Strength Knee Manual Muscle Testing Left Flexion (S2) 5 Normal Extension (L3) 5 Normal Right Flexion (S2) 5 Normal Extension (L3) 5 Normal Ankle/Foot Strength Ankle and Foot Manual Muscle Testing Left Dorsiflexion (L4) 5 Normal Right Dorsiflexion (L4) 5 Normal PT-OP-Q Treatments Start: 07/24/18 18:54 Freq: Status: Active Protocol: Document 08/30/18 16:00 AMH (Rec: 08/30/18 16:05 AMH [email or web address]) Therapeutic Exercises Supine Exercises 6 Supine Exercise Name hooklying hip adduction Side bilateral Resistance pillow Reps/Minutes 10 reps 5 Supine Exercise Name hip flexor stretch off edge of bed Side bilateral Reps/Minutes 30 sec hold Comments had to stop due to increased pain 3 Supine Exercise Name single knee to chest stretch Resistance 1 reps each side Reps/Minutes hold 60 seconds 2 Supine Exercise Name bilateral hip abduction with therabanc Resistance Level 2 exercise band Reps/Minutes 2 x 10 reps Comments Hooklying 1 Supine Exercise Name bridges Comments cues for pain free, yardstick at hips for visual symmetry cues Standing Exercises 3 Standing Exercise Name psoas stretch on stair Reps/Minutes 30 sec 1 Standing Exercise Name marching with core stabalization Side bilateral Reps/Minutes x 10 reps Comments mirror and cues to avoid post pelvic rotation when lifting right foot up Other Exercises 2 Other Exercise Name hip hinge rock back stretch Reps/Minutes x 10 reps Comments c/o tightness on left compared to right Manual Therapy Treatment Soft Tissue Mobilization 2 Body Location left buttock Mobilization Type Myofascial Release Strumming Sustained Pressure Intensity/Depth Moderate Body Position Sidelying 1 Body Location left ITB Mobilization Type Cross-Friction Myofascial Release Strumming Intensity/Depth Moderate Body Position Sidelying PT-OP-R Modalities Start: 07/24/18 18:54 Freq: Status: Active Protocol: Document 08/03/18 10:30 DLM (Rec: 08/03/18 13:26 DLM [id number]) Ultrasound Therapy Treatment Left Hip Comments held today since pt is unsure if it is helping, assess next visit PT-OP-T Assessment and Plan Start: 07/24/18 18:54 Freq: Status: Active Protocol: Document 08/30/18 16:00 AMH (Rec: 08/30/18 16:05 AMH [email or web address]) Physical Therapy Assessment Progress Towards Goals Progress Towards Goals Progressing Toward Goals Assessment Summary Assessment Eryn is making good progress towards her goals. She reports decreased hip pain overall and is standing in better hip alignment. Hip abduction is still a challange for her in standing on the left so treatment will continue to work towards lateral hip stabilization. She has little to no pain to palpation over the lateral hip now. She would benefit from continued PT Physical Therapy Plan Frequency and Duration Frequency of Treatment 2x/Week Duration of Treatment 8 weeks Plan of Care Start Date 07/24/18 Plan of Care End Date 09/30/18 Therapeutic Interventions Therapeutic Interventions Aquatic Therapy Home Exercise Program Manual Therapy Patient/Caregiver Education Self-Care/Home Management Soft Tissue Mobilization Taping Therapeutic Activities Therapeutic Exercises Modalities Cold Pack/Ice Massage Electric Stimulation Hot Packs Ultrasound Next Visit Focus/Plan Next Note Type Treatment Note Next Visit Plan Continue hip/core strengthening. Progress postural training and self assessment, continue to progress hip abduction
--- NOTE | 2018-09-04 14:10 | PT.OTN ---
Current Diagnoses Other bursitis of hip, left hip (09/04/18) Physical Therapy Treatment Note PT-OP-A Visit Information Start: 07/24/18 18:54 Freq: Status: Active Protocol: Document 09/04/18 13:58 ON LICENSE OF [facility] (Rec: 09/04/18 14:10 ON LICENSE OF [facility] [email or web address]) Out-Patient Physical Therapy Visit Information Visit Information Visit Type Treatment Note Visit Start Time 13:00 Visit Stop Time 13:45 Total Visit Minutes 45 Visit Number 11 Number of STEAM FITTER HELPER Visits 0 PT-OP-B Current Condition Start: 07/24/18 18:54 Freq: Status: Active Protocol: Document 07/24/18 10:30 DLM (Rec: 07/25/18 19:24 DLM [id number]) Current Condition History of Current Condition Onset Date 1 year ago Current Complaints left hip area pain, posterior and lateral History of Current Condition She reports her pain started about a year ago. She reports pain relief with prior physical therapy. She underwent an MRI since leaving therapy and has been diagnosed with a scoliosis. She had an injection yesturday . Her pain is limiting her ability to walk. She also has pain lying on left hip to sleep. Prior Treatments and Tests physical therapy injection x 2 MRI Treatment Goals Patient/Caregiver Goals be able to walk and hike for exercise Prior Functional Status Baseline Function- ADL's Independent Baseline Function- Mobility Independent Baseline Function- Gait Independent without device community distances Baseline Function- Work/School retired Baseline Function- Recreation/Hobbies likes to hike and walk for exercise goes to strength and balance class 2 x/week Current Functional Impairments (Reported) Functional Limitations- ADL's Independent, pain makes it hard to fall asleep, increased pain limits how long she can stand Functional Limitations- Mobility/Gait Independent gait without device but has limited her distances due to pain, unable to hike due to the pain, has tried a hiking stick Functional Limitations- Recreation/ unable to hike, continues to Hobbies participate in exercise class 2 x/week Personal Factors Other Personal Factors That May Effect 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 Going on a walk with a friend tomorrow that will be longer distance Patient Reported Progress Improving PT-OP-G Mobility & Gait Start: 07/24/18 18:54 Freq: Status: Active Protocol: Document 07/24/18 10:30 DLM (Rec: 07/25/18 19:24 DL [id number]) OP Mobility Evaluation Bed Mobility Rolling increased pain but able to complete without assistance Supine to and from Sit increased pain but independent , unable to lie flat in supine due to pain and she keeps left knee flexed up Transfers Sit to Stand independent Bed to Chair Transfers independent OP Gait Assessment Gait Gait Assistance Required: Independent Assistive Devices Assistive Device None Gait Deviations General Gait Pattern Antalgic Factors Limiting Gait Function Factors Limiting Gait Function Decreased Strength Pain PT-OP-J Posture/Palpation/Skin Start: 07/24/18 18:54 Freq: Status: Active Protocol: Document 07/24/18 10:30 DLM (Rec: 07/25/18 19:24 DL [id number]) Posture Evaluation Position Standing Evaluation View Posterior Head/C-Spine Posture Side Bent Left Forward Head T-Spine Posture Flexible Scoliosis on (R) L-Spine Posture Flattened Shifted Left Shoulder Posture (L) Elevated Palpation Assessment Location Two Palpation Location left buttock Palpation Findings Soft Tissue Tightness Tenderness Palpation Details left trochanter area also tender, this was also the area of her injection yesturday One Palpation Location lumbar paraspinals Palpation Findings Soft Tissue Tightness Palpation Details left tighter than right PT-OP-K Range of Motion Start: 07/24/18 18:54 Freq: Status: Active Protocol: Document 07/24/18 10:30 DLM (Rec: 07/25/18 19:24 DLM [id number]) Lumbar Spine Range of Motion Lumbar Spine Active Percentage Testing Position standing Flexion 100 Extension 80 Rotation Left 100 Rotation Right 80 Lateral Flexion Left 50 Lateral Flexion Right 100 ROM Limitations Soft Tissue Tightness Bony Restriction Pain Comments flexion- decreased pain left rotation- increased pain lateral flexion left- increased pain Hip Goniometric Range of Motion Hip Measured in Degrees Right Active Hip ROM WFL Yes Left Active Hip ROM WFL Yes Hip ROM Limitations Comments pain with left hip abduction ROM PT-OP-L Special Tests Start: 10/23/18 18:54 Freq: Status: Active Protocol: Document 07/24/18 10:30 DLM (Rec: 07/25/18 19:24 DLM [id number]) Special Tests Lumbar Spine Special Tests Prone Knee Flexion Test Results negative bilaterally Comments left quad tighter than right Hip Special Tests Straight Leg Raise Test Results negative bilateral, less pain with SLR on left PT-OP-M Strength Start: 07/24/18 18:54 Freq: Status: Active Protocol: Document 07/24/18 10:30 DLM (Rec: 07/25/18 19:24 DLM [id number]) Trunk Strength Trunk Manual Muscle Testing Reason Not Measured Pain Comments pain interferes with her trunk strength Hip Strength Hip Manual Muscle Testing Left Flexion (L2) 4 Good Extension (S1) 5 Normal Abduction 3+ Fair+ Adduction 5 Normal External Rotation 4 Good Internal Rotation 4 Good Reason Not Measured Pain Comments pain with resisted left hip flexion Right Flexion (L2) 5 Normal Extension (S1) 4+ Good+ Abduction 5 Normal Adduction 5 Normal External Rotation 5 Normal Internal Rotation 5 Normal Knee Strength Knee Manual Muscle Testing Left Flexion (S2) 5 Normal Extension (L3) 5 Normal Right Flexion (S2) 5 Normal Extension (L3) 5 Normal Ankle/Foot Strength Ankle and Foot Manual Muscle Testing Left Dorsiflexion (L4) 5 Normal Right Dorsiflexion (L4) 5 Normal PT-OP-Q Treatments Start: 07/24/18 18:54 Freq: Status: Active Protocol: Document 09/04/18 13:58 AMH (Rec: 09/04/18 14:10 AMH [email or web address]) Cardio Equipment Recumbent Elliptical (Biodex) Duration (Minutes) 5 Other lev 3 Gym Equipment Cable Column (Body Solid) Hip Abduction Details seated hip abduction Resistance 20# Reps/Time 3 x 10 reps Therapeutic Exercises Supine Exercises 5 Supine Exercise Name hip flexor stretch off edge of bed Side bilateral Reps/Minutes 30 sec hold Comments had to stop due to increased pain 3 Supine Exercise Name single knee to chest stretch Resistance 1 reps each side Reps/Minutes hold 60 seconds 2 Supine Exercise Name bilateral hip abduction with therabanc Resistance Level 2 exercise band Reps/Minutes 2 x 10 reps Comments Hooklying 1 Supine Exercise Name bridges Comments cues for pain free, yardstick at hips for visual symmetry cues Sidelying Exercises 1 Sidelying Exercise Name clam shells Reps/Minutes 2 x 10 reps Sitting Exercises 1 Sitting Exercise Name seated sidebend stretch Standing Exercises 1 Standing Exercise Name marching with core stabalization Side bilateral Reps/Minutes x 10 reps Comments mirror and cues to avoid post pelvic rotation when lifting right foot up Manual Therapy Treatment Soft Tissue Mobilization 2 Body Location left buttock Mobilization Type Myofascial Release Strumming Sustained Pressure Intensity/Depth Moderate Body Position Sidelying 1 Body Location left ITB Mobilization Type Cross-Friction Myofascial Release Strumming Intensity/Depth Moderate Body Position Sidelying Manual Techniques 1 Type manual long access distraction Left leg PT-OP-R Modalities Start: 07/24/18 18:54 Freq: Status: Active Protocol: Document 08/03/18 10:30 DLM (Rec: 08/03/18 13:26 DLM [id number]) Ultrasound Therapy Treatment Left Hip Comments held today since pt is unsure if it is helping, assess next visit PT-OP-T Assessment and Plan Start: 07/24/18 18:54 Freq: Status: Active Protocol: Document 09/04/18 13:58 AMH (Rec: 09/04/18 14:10 AMH [email or web address]) Physical Therapy Assessment Assessment Summary Assessment A few twinges of pain today after clams shells into the anterior thigh. Otherwise tolerating all exercises well. Physical Therapy Plan Frequency and Duration Frequency of Treatment 2x/Week Duration of Treatment 8 weeks Plan of Care Start Date 07/24/18 Plan of Care End Date 09/30/18 Therapeutic Interventions Therapeutic Interventions Aquatic Therapy Home Exercise Program Manual Therapy Patient/Caregiver Education Self-Care/Home Management Soft Tissue Mobilization Taping Therapeutic Activities Therapeutic Exercises Modalities Cold Pack/Ice Massage Electric Stimulation Hot Packs Ultrasound Next Visit Focus/Plan Next Note Type Treatment Note Next Visit Plan continue to progress core strength and hip strength. Assess pain levels next visit following patients longer walk .
--- NOTE | 2018-09-11 16:51 | PT.OTN ---
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 She reports pain relief with prior physical therapy. She underwent an MRI since leaving therapy and has been diagnosed with a scoliosis. She had an injection yesturday . Her pain is limiting her ability to walk. She also has pain lying on left hip to sleep. Prior Treatments and Tests physical therapy injection x 2 MRI Treatment Goals Patient/Caregiver Goals be able to walk and hike for exercise Prior Functional Status Baseline Function- ADL's Independent Baseline Function- Mobility Independent Baseline Function- Gait Independent without device community distances Baseline Function- Work/School retired Baseline Function- Recreation/Hobbies likes to hike and walk for exercise goes to strength and balance class 2 x/week Current Functional Impairments (Reported) Functional Limitations- ADL's Independent, pain makes it hard to fall asleep, increased pain limits how long she can stand Functional Limitations- Mobility/Gait Independent gait without device but has limited her distances due to pain, unable to hike due to the pain, has tried a hiking stick Functional Limitations- Recreation/ unable to hike, continues to Hobbies participate in exercise class 2 x/week Personal Factors Other Personal Factors That May Effect 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 She [place] [facility] her house and did great but then walking back up the hill was tender. Her plan was to take IBU once home but pain went away so she didn't need it. Patient Reported Progress Improving PT-OP-G Mobility & Gait Start: 07/24/18 18:54 Freq: Status: Active Protocol: Document 07/24/18 10:30 DLM (Rec: 07/25/18 19:24 DLM [id number]) OP Mobility Evaluation Bed Mobility Rolling increased pain but able to complete without assistance Supine to and from Sit increased pain but independent , unable to lie flat in supine due to pain and she keeps left knee flexed up Transfers Sit to Stand independent Bed to Chair Transfers independent OP Gait Assessment Gait Gait Assistance Required: Independent Assistive Devices Assistive Device None Gait Deviations General Gait Pattern Antalgic Factors Limiting Gait Function Factors Limiting Gait Function Decreased Strength Pain PT-OP-J Posture/Palpation/Skin Start: 07/24/18 18:54 Freq: Status: Active Protocol: Document 07/24/18 10:30 DLM (Rec: 07/25/18 19:24 DLM [id number]) Posture Evaluation Position Standing Evaluation View Posterior Head/C-Spine Posture Side Bent Left Forward Head T-Spine Posture Flexible Scoliosis on (R) L-Spine Posture Flattened Shifted Left Shoulder Posture (L) Elevated Palpation Assessment Location Two Palpation Location left buttock Palpation Findings Soft Tissue Tightness Tenderness Palpation Details left trochanter area also tender, this was also the area of her injection yesturday One Palpation Location lumbar paraspinals Palpation Findings Soft Tissue Tightness Palpation Details left tighter than right PT-OP-K Range of Motion Start: 07/24/18 18:54 Freq: Status: Active Protocol: Document 07/24/18 10:30 DLM (Rec: 07/25/18 19:24 DLM [id number]) Lumbar Spine Range of Motion Lumbar Spine Active Percentage Testing Position standing Flexion 100 Extension 80 Rotation Left 100 Rotation Right 80 Lateral Flexion Left 50 Lateral Flexion Right 100 ROM Limitations Soft Tissue Tightness Bony Restriction Pain Comments flexion- decreased pain left rotation- increased pain lateral flexion left- increased pain Hip Goniometric Range of Motion Hip Measured in Degrees Right Active Hip ROM WFL Yes Left Active Hip ROM WFL Yes Hip ROM Limitations Comments pain with left hip abduction ROM PT-OP-L Special Tests Start: 07/24/18 18:54 Freq: Status: Active Protocol: Document 07/24/18 10:30 DLM (Rec: 07/25/18 19:24 DLM [id number]) Special Tests Lumbar Spine Special Tests Prone Knee Flexion Test Results negative bilaterally Comments left quad tighter than right Hip Special Tests Straight Leg Raise Test Results negative bilateral, less pain with SLR on left PT-OP-M Strength Start: 07/24/18 18:54 Freq: Status: Active Protocol: Document 07/24/18 10:30 DLM (Rec: 07/25/18 19:24 DLM [id number]) Trunk Strength Trunk Manual Muscle Testing Reason Not Measured Pain Comments pain interferes with her trunk strength Hip Strength Hip Manual Muscle Testing Left Flexion (L2) 4 Good Extension (S1) 5 Normal Abduction 3+ Fair+ Adduction 5 Normal External Rotation 4 Good Internal Rotation 4 Good Reason Not Measured Pain Comments pain with resisted left hip flexion Right Flexion (L2) 5 Normal Extension (S1) 4+ Good+ Abduction 5 Normal Adduction 5 Normal External Rotation 5 Normal Internal Rotation 5 Normal Knee Strength Knee Manual Muscle Testing Left Flexion (S2) 5 Normal Extension (L3) 5 Normal Right Flexion (S2) 5 Normal Extension (L3) 5 Normal Ankle/Foot Strength Ankle and Foot Manual Muscle Testing Left Dorsiflexion (L4) 5 Normal Right Dorsiflexion (L4) 5 Normal PT-OP-Q Treatments Start: 07/24/18 18:54 Freq: Status: Active Protocol: Document 09/11/18 16:41 AMH (Rec: 09/11/18 16:51 AMH [email or web address]) Therapeutic Exercises Supine Exercises 6 Supine Exercise Name hooklying hip adduction Side bilateral Resistance pillow Reps/Minutes 10 reps 5 Supine Exercise Name hip flexor stretch off edge of bed Side bilateral Reps/Minutes 30 sec hold Comments had to stop due to increased pain 4 Supine Exercise Name ITB stretch with manual assistance Reps/Minutes hold 1-2 minutes 3 Supine Exercise Name single knee to chest stretch Resistance 1 reps each side Reps/Minutes hold 60 seconds 2 Supine Exercise Name bilateral hip abduction with therabanc Resistance Level 2 exercise band Reps/Minutes 2 x 10 reps Comments Hooklying 1 Supine Exercise Name bridges Comments cues for pain free, yardstick at hips for visual symmetry cues Sidelying Exercises 1 Sidelying Exercise Name clam shells Reps/Minutes 2 x 10 reps Sitting Exercises 1 Sitting Exercise Name seated sidebend stretch Standing Exercises 3 Standing Exercise Name psoas stretch on stair Reps/Minutes 30 sec 2 Standing Exercise Name postural correction Equipment Used mirror 1 Standing Exercise Name marching with core stabalization Side bilateral Reps/Minutes x 10 reps Comments mirror and cues to avoid post pelvic rotation when lifting right foot up Other Exercises 2 Other Exercise Name hip hinge rock back stretch Reps/Minutes x 10 reps Comments c/o tightness on left compared to right 1 Other Exercise Name cat cow Reps/Minutes 10 reps Comments Quadruped with towel under left hand Manual Therapy Treatment Soft Tissue Mobilization 1 Body Location left ITB Mobilization Type Cross-Friction Myofascial Release Strumming Intensity/Depth Moderate Body Position Sidelying Manual Techniques 1 Type manual long access distraction Left leg PT-OP-R Modalities Start: 07/24/18 18:54 Freq: Status: Active Protocol: Document 08/03/18 10:30 DLM (Rec: 08/03/18 13:26 DLM [id number]) Ultrasound Therapy Treatment Left Hip Comments held today since pt is unsure if it is helping, assess next visit PT-OP-T Assessment and Plan Start: 07/24/18 18:54 Freq: Status: Active Protocol: Document 09/11/18 16:41 AMH (Rec: 09/11/18 16:51 AMH [email or web address]) Physical Therapy Assessment Assessment Summary Assessment good increase in tolerance for walking. Review all exercise next visit as it is her last visit prior to DC Physical Therapy Plan Frequency and Duration Frequency of Treatment 2x/Week Duration of Treatment 8 weeks Plan of Care Start Date 07/24/18 Plan of Care End Date 09/30/18 Next Visit Focus/Plan Next Note Type Treatment Note Next Visit Plan review all established exercises as this will be Louises last visit.
--- NOTE | 2018-11-14 12:17 | PT.OPDS ---
Current Diagnoses Other bursitis of hip, left hip (09/11/18) Provider Visit Care Team Role Provider Type Robin Dyson MD Attending Provider Non-Staff Primary Care Provider Specialty: Orthopedic Surgery Address: [address] [place] [address], [id number] Email: Visit Number Visit Number 12 Discharge Summary PT-OP-B Current Condition Start: 07/24/18 18:54 Freq: Status: Active Protocol: Document 07/24/18 10:30 DLM (Rec: 07/25/18 19:24 DLM [id number]) Current Condition History of Current Condition Onset Date 1 year ago Current Complaints left hip area pain, posterior and lateral History of Current Condition She reports her pain started about a year ago. She reports pain relief with prior physical therapy. She underwent an MRI since leaving therapy and has been diagnosed with a scoliosis. She had an injection yesturday . Her pain is limiting her ability to walk. She also has pain lying on left hip to sleep. Prior Treatments and Tests physical therapy injection x 2 MRI Treatment Goals Patient/Caregiver Goals be able to walk and hike for exercise Prior Functional Status Baseline Function- ADL's Independent Baseline Function- Mobility Independent Baseline Function- Gait Independent without device community distances Baseline Function- Work/School retired Baseline Function- Recreation/Hobbies likes to hike and walk for exercise goes to strength and balance class 2 x/week Current Functional Impairments (Reported) Functional Limitations- ADL's Independent, pain makes it hard to fall asleep, increased pain limits how long she can stand Functional Limitations- Mobility/Gait Independent gait without device but has limited her distances due to pain, unable to hike due to the pain, has tried a hiking stick Functional Limitations- Recreation/ unable to hike, continues to Hobbies participate in exercise class 2 x/week Personal Factors Other Personal Factors That May Effect 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 [place] [facility] [place] and did great but then walking back up the hill was tender. Her plan was to take IBU once home but pain went away so she didn't need it. Patient Reported Progress Improving PT-OP-G Mobility & Gait Start: 07/24/18 18:54 Freq: Status: Active Protocol: Document 07/24/18 10:30 DLM (Rec: 07/25/18 19:24 DLM [id number]) OP Mobility Evaluation Bed Mobility Rolling increased pain but able to complete without assistance Supine to and from Sit increased pain but independent , unable to lie flat in supine due to pain and she keeps left knee flexed up Transfers Sit to Stand independent Bed to Chair Transfers independent OP Gait Assessment Gait Gait Assistance Required: Independent Assistive Devices Assistive Device None Gait Deviations General Gait Pattern Antalgic Factors Limiting Gait Function Factors Limiting Gait Function Decreased Strength Pain PT-OP-J Posture/Palpation/Skin Start: 07/24/18 18:54 Freq: Status: Active Protocol: Document 07/24/18 10:30 DLM (Rec: 07/25/18 19:24 DLM [id number]) Posture Evaluation Position Standing Evaluation View Posterior Head/C-Spine Posture Side Bent Left Forward Head T-Spine Posture Flexible Scoliosis on (R) L-Spine Posture Flattened Shifted Left Shoulder Posture (L) Elevated Palpation Assessment Location Two Palpation Location left buttock Palpation Findings Soft Tissue Tightness Tenderness Palpation Details left trochanter area also tender, this was also the area of her injection yesturday One Palpation Location lumbar paraspinals Palpation Findings Soft Tissue Tightness Palpation Details left tighter than right PT-OP-K Range of Motion Start: 07/24/18 18:54 Freq: Status: Active Protocol: Document 07/24/18 10:30 DLM (Rec: 07/25/18 19:24 DLM [id number]) Lumbar Spine Range of Motion Lumbar Spine Active Percentage Testing Position standing Flexion 100 Extension 80 Rotation Left 100 Rotation Right 80 Lateral Flexion Left 50 Lateral Flexion Right 100 ROM Limitations Soft Tissue Tightness Bony Restriction Pain Comments flexion- decreased pain left rotation- increased pain lateral flexion left- increased pain Hip Goniometric Range of Motion Hip Measured in Degrees Right Active Hip ROM WFL Yes Left Active Hip ROM WFL Yes Hip ROM Limitations Comments pain with left hip abduction ROM PT-OP-L Special Tests Start: 07/24/18 18:54 Freq: Status: Active Protocol: Document 07/24/18 10:30 DLM (Rec: 07/25/18 19:24 DLM [id number]) Special Tests Lumbar Spine Special Tests Prone Knee Flexion Test Results negative bilaterally Comments left quad tighter than right Hip Special Tests Straight Leg Raise Test Results negative bilateral, less pain with SLR on left PT-OP-M Strength Start: 07/24/18 18:54 Freq: Status: Active Protocol: Document 07/24/18 10:30 DLM (Rec: 07/25/18 19:24 DLM [id number]) Trunk Strength Trunk Manual Muscle Testing Reason Not Measured Pain Comments pain interferes with her trunk strength Hip Strength Hip Manual Muscle Testing Left Flexion (L2) 4 Good Extension (S1) 5 Normal Abduction 3+ Fair+ Adduction 5 Normal External Rotation 4 Good Internal Rotation 4 Good Reason Not Measured Pain Comments pain with resisted left hip flexion Right Flexion (L2) 5 Normal Extension (S1) 4+ Good+ Abduction 5 Normal Adduction 5 Normal External Rotation 5 Normal Internal Rotation 5 Normal Knee Strength Knee Manual Muscle Testing Left Flexion (S2) 5 Normal Extension (L3) 5 Normal Right Flexion (S2) 5 Normal Extension (L3) 5 Normal Ankle/Foot Strength Ankle and Foot Manual Muscle Testing Left Dorsiflexion (L4) 5 Normal Right Dorsiflexion (L4) 5 Normal PT-OP-T Assessment and Plan Start: 07/24/18 18:54 Freq: Status: Active Protocol: Document 11/14/18 11:11 AMH (Rec: 11/14/18 12:17 AMH [email or web address]) Physical Therapy Assessment Assessment Summary Assessment good increase in tolerance for walking. Eryn was unable to make her last visit in PT but she independent with her home program so she will be discharged at this time Physical Therapy Plan Discharge Physical Therapy Discharge Reasons No Longer Attending PT Discharge Comments DC to independent home program
== END 2018-11-14 13:03 ==
LOC: PHYS 13:00
PROVIDERS: PCP Orthopaedic Surgery; Visit Provider Orthopaedic Surgery
DX: M70.72 Other bursitis of hip, left hip (principal)
CPT/HCPCS: 97035; 97110; 97140; 97162